=== PATIENT | female | born 1980 | race Caucasian/White ===

== ENCOUNTER → 2016-09-04 | Day surgery (SDC) | payer OTHER ==
[2016-08-27 09:06] VITALS: BMI 18.0
[~2016-09-04] VITALS: Ht 162.6 cm; Wt 49.0 kg
[~2016-09-04] MED LIST: CHOL20009 PO; CLC6 PO; DROS1TAB24 PO; IBUP1CAP9 PO; LEVO137T3 PO; LIDOCAINE HCL 2% 2 ML VIAL (20MG/ML) ONE; LIOT5TAB PO; MIDAZOLAM HCL 1 MG/ML 2ML VIAL ONE; OMEP20TA PO; ONDANSETRON INJ 2 MG/ML 2 ML VIAL ONE; PROPOFOL IV EMULSION 10 MG/ML 20 ML VIAL IV ONE; SODIUM CHLORIDE 0.9% 500ML 500 ML IV ONE; SPIR25TA PO; TRAM-453 PO
[2016-09-04 10:48] VITALS: Ht 162.6 cm; Wt 49.0 kg
[2016-09-04 10:49] VITALS: TEMP 36.8
--- NOTE | 2016-09-04 11:36 | Endo History and Physical ---
History & Physical Date of Service: Sep 04, 2016. Chief Complaint: INCREASED REFLUX AND DYSPHAGIA Referring Physician: JOSE FRANCISCO MCALLISTER History of Present Illness 36 yo CF who presents for EGD secondary to worsening GERD and dysphagia. Past Medical History Gastrointestinal Disorder, Reflux, Cancer, Heart Disease, Thyroid Disease Past Surgical History Hx Cardiac Surgery: Yes (CARDIAC CATHETERIZATION 2001) Hx Internal Defibrillator: No Hx Pacemaker: No Hx Abdominal Surgery: No Hx of Implantable Prosthesis: No Hx Post-Op Nausea and Vomiting: Yes Hx Cancer Surgery: Yes (THYROIDECTOMY 1998) Hx Thoracic Surgery: Yes (THYMUS REMOVAL 2000) Hx Orthopedic: Yes (L5-S1 FUSION 2014) Hx Urinary Tract Surgery: No Family History Colon CA, Polyp, IBD Social History Smoking Status: Never Smoker Hx Substance Use: No Hx Alcohol Use: Yes (SOCIAL) Allergies Coded Allergies: Morphine (Verified Adverse Reaction, Intermediate, RED VEINS, 09/04/16) Current Medications Reported Home Medications Medications Dose Route/Sig Max Daily Dose Days Date Category Dose Instructions Aldactone (Spironolactone) 25 Mg Tab 25 Mg PO QAM 08/27/16 Reported Cytomel (Liothyronine Sodium) 5 Mcg Tab 5 Mcg PO Q2D 11/18/15 Reported Levothyroxine Sodium 137 Mcg Tab 137 Mcg PO QAM 90 11/18/15 Reported Ibuprofen 200 Mg Cap 600 Mg PO TID PRN 07/15/14 Reported Radha (Drospirenone-Ethinyl Estradiol) 1 Tab Tab 1 Tab PO QAM 07/15/14 Reported Omeprazole 20 Mg Tab 20 Mg PO QAM 07/15/14 Reported Ultram (Tramadol Hcl) 50 Mg Tab 50-100 Mg PO Q4H PRN 05/29/13 Reported PRN PAIN Vitamin D (Cholecalciferol) 2,000 Unit Tab 2,000 Units PO QAM 05/29/13 Reported Colchicine * (Colchicine) 0.6 Mg Tab 0.6 Mg PO QAM 11/01/11 Reported Vital Signs Weight (Kilograms): 49.00 Height (Feet): 5 Height (Inches): 4 Date Time Temp Pulse Resp B/P Pulse Ox O2 Delivery O2 Flow Rate FiO2 09/04/16 10:49 36.8 94 18 143/59 98 Room Air Physical Exam General Appearance: WD/WN, no apparent distress Respiratory/Chest: Auscultation: breath sounds normal Cardiovascular: Heart Auscultation: RRR Abdomen: Bowel Sounds: normal Inspection & Palpation: soft, non-distended, no tenderness, guarding & rebound Assessment and Plan Assessment: 36 yo CF who presents for EGD secondary to worsening GERD and dysphagia. Plan: Proceed with EGD.
--- NOTE | 2016-09-04 12:02 | Discharge Instructions ---
Endoscopy Patient Instructions Date / Procedure(s) Performed Sep 04, 2016. Colonoscopy, EGD Allergy Information Coded Allergies: Morphine (Verified Adverse Reaction, Intermediate, RED VEINS, 09/04/16) Discharge Date / Findings Sep 04, 2016. Schatzki's ring s/p dilation Medication Instructions OK to resume all medications today as prescribed Reported Home Medications Medications Dose Route/Sig Max Daily Dose Days Date Category Dose Instructions Aldactone (Spironolactone) 25 Mg Tab 25 Mg PO QAM 08/27/16 Reported Cytomel (Liothyronine Sodium) 5 Mcg Tab 5 Mcg PO Q2D 11/18/15 Reported Levothyroxine Sodium 137 Mcg Tab 137 Mcg PO QAM 90 11/18/15 Reported Ibuprofen 200 Mg Cap 600 Mg PO TID PRN 07/15/14 Reported Radha (Drospirenone-Ethinyl Estradiol) 1 Tab Tab 1 Tab PO QAM 07/15/14 Reported Omeprazole 20 Mg Tab 20 Mg PO QAM 07/15/14 Reported Ultram (Tramadol Hcl) 50 Mg Tab 50-100 Mg PO Q4H PRN 05/29/13 Reported PRN PAIN Vitamin D (Cholecalciferol) 2,000 Unit Tab 2,000 Units PO QAM 05/29/13 Reported Colchicine * (Colchicine) 0.6 Mg Tab 0.6 Mg PO QAM 11/01/11 Reported Provider Instructions Activity Restrictions - No exercising or heavy lifting for 24 hours. - Do not drink alcohol the day of the procedure. - Do not drive a car or operate machinery until the day after the procedure. - Do not make any important decisions or sign important papers in 24 hours after the procedure. Following Day: - Return to full activity which may include returning to work/school. Diet Start your diet with liquids and light foods (jello, soup, juice, toast). Then eat your usual diet if not nauseated. Treatment For Common After Affects For mild abdominal pain, bloating, or excessive gas: - Rest - Eat lightly - Lie on right side Follow-Up Information Follow-up with JOSE FRANCISCO MCALLISTER as scheduled Anesthesia Information What You Should Know You have had a procedure that required some medicine to reduce anxiety and discomfort. This treatment is called moderate sedation. After receiving the treatment, you may be sleepy, but you will be able to breathe on your own. The effects of the treatment may last for several hours. Follow these instructions along with Activity/Diet recommendations noted above: * Do NOT do anything where dizziness or clumsiness would be dangerous. * Rest quietly at home today, then you can be up and about tomorrow. * Have a responsible person stay with you the rest of today. * You may have had an I.V. today. If so, you may take the dressing off later today. Recommendations Call your doctor if: * Trouble breathing * Continuous vomiting for more than 24 hours * Temperature above 101 degrees * Severe abdominal pain or bloating * Pain not relieved by pain medicine ordered * There is increased drainage or redness from any incision * A large amount of rectal bleeding greater than 2-3 tablespoons. (If you had a polyp/s removed or have hemorrhoids, a small amount of blood - from the rectum is to be expected.) * You have any unanswered questions or concerns. IN THE EVENT OF A SERIOUS EMERGENCY, GO TO THE NEAREST EMERGENCY ROOM Your discharge instructions were prepared by provider Kali Clemente. Patient Instructions Signature Page Alma Rosa Messina Patient (or Guardian) Signature/Date: I have read and understand the instructions given to me by my caregivers. Caregiver/RN/Doctor Signature/Date: The above-named patient and/or guardian has received patient instructions on this date. + Original Patient Signature Page (only) stays with chart. Please make copy for patient.
--- NOTE | 2016-09-04 12:02 | GI REPORT ---
Procedure Date: 09/04/2016 11:27 AM Procedure: Upper GI endoscopy Indications: Dysphagia, Gastro-esophageal reflux disease Medicines: Monitored Anesthesia Care Complications: No immediate complications. Estimated Blood Loss: Estimated blood loss: none. Procedure: Pre-Anesthesia Assessment: - Prior to the procedure, a History and Physical was performed, and patient medications and allergies were reviewed. The patient's tolerance of previous anesthesia was also reviewed. The risks and benefits of the procedure and the sedation options and risks were discussed with the patient. All questions were answered, and informed consent was obtained. Prior Anticoagulants: The patient has taken no previous anticoagulant or antiplatelet agents. ASA Grade Assessment: II - A patient with mild systemic disease. After reviewing the risks and benefits, the patient was deemed in satisfactory condition to undergo the procedure. After obtaining informed consent, the endoscope was passed under direct vision. Throughout the procedure, the patient's blood pressure, pulse, and oxygen saturations were monitored continuously. The scope was introduced through the mouth, and advanced to the second part of duodenum. The upper GI endoscopy was accomplished without difficulty. The patient tolerated the procedure well. Findings: A mild Schatzki ring (acquired) was found at the gastroesophageal junction. A TTS dilator was passed through the scope. Dilation with a 15-16.5-18 mm balloon (to a maximum balloon size of 18 mm) and an 18-19-20 mm balloon (to a maximum balloon size of 20 mm) dilator was performed. The dilation site was examined and showed mild improvement in luminal narrowing. Multiple sessile polyps with no bleeding and no stigmata of recent bleeding were found in the gastric fundus. The examined duodenum was normal. Impression: - Mild Schatzki ring. Dilated. - Multiple gastric polyps. - Normal examined duodenum. - No specimens collected. Recommendation: - Resume previous diet. - Continue present medications. - Repeat the upper endoscopy PRN for retreatment. - Return to GI clinic as previously scheduled. Kali Clemente, DO 09/04/2016 12:01:32 PM This report has been signed electronically. Note Initiated On: 09/04/2016 11:27 AM I attest to the content of the Intraoperative Record and orders documented therein, exceptions below
[2016-09-04 12:35] VITALS: BP 102/60; PULSE 61; O2SAT 99
--- NOTE | 2016-09-04 12:36 | Anesthesiology Progress Note ---
Anesthesia Post Op Note Date & Time Sep 04, 2016 at 12:36 Vital Signs Pain Intensity: 0 Vital Signs Past 12 Hours Date Time Temp Pulse Resp B/P Pulse Ox O2 Delivery O2 Flow Rate FiO2 09/04/16 12:05 82 18 118/81 100 Room Air 09/04/16 10:49 36.8 94 18 143/59 98 Room Air Notes Mental Status: alert / awake / arousable, participated in evaluation Pt Amnestic to Procedure: Yes Nausea / Vomiting: adequately controlled Pain: adequately controlled Airway Patency, RR, SpO2: stable & adequate BP & HR: stable & adequate Hydration State: stable & adequate Anesthetic Complications: no major complications apparent
== END | disposition home or self-care (01) ==
LOC: C.GI 10:29
PROVIDERS: ATTEND Internal Medicine
DX: K22.2 Esophageal obstruction (principal); K21.9 Gastro-esophageal reflux disease without esophagitis; K31.7 Polyp of stomach and duodenum; I51.9 Heart disease, unspecified; E07.9 Disorder of thyroid, unspecified; Z98.1 Arthrodesis status; Z98.890 Other specified postprocedural states; Z80.0 Family history of malignant neoplasm of digestive organs; Z88.5 Allergy status to narcotic agent; Z83.79 Family history of other diseases of the digestive system

== ENCOUNTER → 2016-11-05 | Outpatient (CLI) | payer OTHER ==
[~2016-11-05] MED LIST changes: -LIDOCAINE HCL 2% 2 ML VIAL (20MG/ML) ONE; -MIDAZOLAM HCL 1 MG/ML 2ML VIAL ONE; -ONDANSETRON INJ 2 MG/ML 2 ML VIAL ONE; -PROPOFOL IV EMULSION 10 MG/ML 20 ML VIAL IV ONE; -SODIUM CHLORIDE 0.9% 500ML 500 ML IV ONE
[2016-11-05 18:01] LABS: THYROID STIMULATING HORMONE 0.556 uIu/ml (0.300-4.500)
== END | disposition home or self-care (01) ==
LOC: C.LABBC 13:27
PROVIDERS: ATTEND Nurse Practitioner Family
DX: E89.0 Postprocedural hypothyroidism (principal)

== ENCOUNTER → 2016-11-22 | Outpatient (CLI) | payer OTHER ==
--- NOTE | 2016-11-22 08:25 | DIAGNOSTIC IMAGING REPORT ---
THYROID ULTRASOUND CLINICAL HISTORY: Postablative hypothyroidism. COMPARISON STUDY: PET/CT April 28, 2012. TECHNIQUE: Sonography of the thyroid gland was performed. FINDINGS: No residual thyroid tissue is identified. No lymphadenopathy or other abnormalities are identified within the neck following thyroidectomy. IMPRESSION: Expected findings following thyroidectomy. No sonographic evidence for recurrent malignancy within the thyroidectomy bed. Electronically signed by: Mario Nicholson M.D. 11/22/2016 8:24 AM Dictated Date/Time: 11/22/2016 8:22 AM
== END | disposition home or self-care (01) ==
LOC: C.ULTR 07:04
PROVIDERS: ATTEND Nurse Practitioner Family
DX: E89.0 Postprocedural hypothyroidism (principal)

== ENCOUNTER → 2017-05-03 | Outpatient (CLI) | payer OTHER ==
[2017-05-03 18:09] LABS: BASO % 0.4 %; BASO ABS # 0.03 K/uL (0-0.2); COMPLETE YES; EOS % 3.8 %; HEMATOCRIT 40.4 % (37-47); IG% 0.1 %; LYMPH % 28.1 %; MEAN CELL VOLUME 91.8 fL (80-100); MEAN CORPUSCULAR HEMOGLOBIN 30.7 pg (25-34); MEAN CORPUSCULAR HGB CONC 33.4 g/dl (32-36); MEAN PLATELET VOLUME 12.3 fL (7.4-10.4); MONO % 5.9 %; NEUT % 61.7 %; PLATELET COUNT 199 K/uL (130-400); WHITE BLOOD COUNT 8.19 K/uL (4.8-10.8)
[2017-05-03 18:31] LABS: ALT/SGPT 18 U/L (12-78); BLOOD UREA NITROGEN 16 mg/dl (7-18); BUN/CREATININE RATIO 20.6 (10-20); CALCIUM 8.8 mg/dl (8.5-10.1); CARBON DIOXIDE 28 mmol/L (21-32); CHLORIDE 107 mmol/L (98-107); CREATININE 0.79 mg/dl (0.60-1.20); GLUCOSE 82 mg/dl (70-99); MAGNESIUM 2.3 mg/dl (1.8-2.4); POTASSIUM 3.8 mmol/L (3.5-5.1); SODIUM 141 mmol/L (136-145)
[2017-05-03 18:39] LABS: ALB/GLOB RATIO 1.2 (0.9-2); ALKALINE PHOSPHATASE 49 U/L (45-117); AST/SGOT 14 U/L (15-37); FERRITIN 12.1 ng/ml (8.0-388.0)
== END | disposition home or self-care (01) ==
LOC: C.LAB 17:07
PROVIDERS: ATTEND Nurse Practitioner Family
DX: M79.669 Pain in unspecified lower leg (principal); M79.89 Other specified soft tissue disorders

== ENCOUNTER → 2017-05-09 | Outpatient (CLI) | payer OTHER ==
[2017-05-12 18:32] LABS: MICROSOMAL AB 1 IU/ML (<9); THYROGLOBULIN 0.2 NG/ML (2.8-40.9); TSI <89 % baseline (<140)
== END | disposition home or self-care (01) ==
LOC: C.LAB 08:19
PROVIDERS: ATTEND Nurse Practitioner Family
DX: E89.0 Postprocedural hypothyroidism (principal)

== ENCOUNTER → 2017-08-28 | Outpatient (CLI) | payer OTHER ==
[2017-08-28 17:44] LABS: BASO % 0.3 %; BASO ABS # 0.02 K/uL (0-0.2); EOS % 2.7 %; HEMATOCRIT 39.5 % (37-47); HEMOGLOBIN 13.2 g/dL (12.0-16.0); IG# 0.01 K/uL (0.00-0.02); LYMPH ABS # 1.77 K/uL (1.2-3.4); MEAN CELL VOLUME 91.2 fL (80-100); MEAN CORPUSCULAR HEMOGLOBIN 30.5 pg (25-34); MEAN CORPUSCULAR HGB CONC 33.4 g/dl (32-36); MONO % 6.6 %; MONO ABS # 0.49 K/uL (0.11-0.59); NEUT % 66.3 %; NEUT ABS # 4.88 K/uL (1.4-6.5); PLATELET COUNT 212 K/uL (130-400); RED CELL DISTRIBUTION WIDTH CV 12.6 % (11.5-14.5); RED CELL DISTRIBUTION WIDTH SD 41.9 fL (36.4-46.3); WHITE BLOOD COUNT 7.37 K/uL (4.8-10.8)
[2017-08-28 18:20] LABS: T3 FREE 3.47 pg/ml (2.30-4.20)
[2017-09-05 20:33] LABS: ACETYLCHOLINE RECEPT BLOCKING <15 % inhibit (<15); ALDOLASE** TC 66985R 4 U/L (0.0-8.1); ANA SCREEN TC 249X NEGATIVE (NEGATIVE); ANTI-SS-A <1.0 NEG AI (<1.0 NEG); ANTI-SS-B <1.0 NEG AI (<1.0 NEG); ANTICARDIOLIPID AB IGA <11 APL (< = 11); COMPLEMENT C3 TC 44859W 116 MG/DL (90-180); COMPLEMENT C4 TC 44982E 23 MG/DL (16-47); MICROSOMAL AB 1 IU/ML (<9)
== END | disposition home or self-care (01) ==
LOC: C.LAB 17:10
PROVIDERS: ATTEND Nurse Practitioner Family
DX: E89.0 Postprocedural hypothyroidism (principal); R13.10 Dysphagia, unspecified; R29.898 Other symptoms and signs involving the musculoskeletal system; R51 Headache; R42 Dizziness and giddiness; M54.17 Radiculopathy, lumbosacral region; H53.2 Diplopia

== ENCOUNTER 2017-09-30 12:00 | Observation (INO) | payer OTHER ==
[~2017-09-30] VITALS: Ht 162.6 cm; Wt 51.9 kg
[2017-09-30 12:56] LABS: BASO % 0.3 %; BASO ABS # 0.03 K/uL (0-0.2); EOS ABS # 0.11 K/uL (0-0.5); HEMATOCRIT 43.4 % (37-47); HEMOGLOBIN 14.9 g/dL (12.0-16.0); IG# 0.04 K/uL (0.00-0.02); LYMPH % 24.6 %; LYMPH ABS # 2.69 K/uL (1.2-3.4); MEAN CELL VOLUME 88.4 fL (80-100); MEAN CORPUSCULAR HEMOGLOBIN 30.3 pg (25-34); MEAN CORPUSCULAR HGB CONC 34.3 g/dl (32-36); MEAN PLATELET VOLUME 12.6 fL (7.4-10.4); MONO % 5.6 %; MONO ABS # 0.61 K/uL (0.11-0.59); NEUT % 68.1 %; NEUT ABS # 7.46 K/uL (1.4-6.5); PLATELET COUNT 237 K/uL (130-400); RED CELL DISTRIBUTION WIDTH SD 42.1 fL (36.4-46.3); WHITE BLOOD COUNT 10.94 K/uL (4.8-10.8)
[2017-09-30 13:05] LABS: ALBUMIN 4.3 gm/dl (3.4-5.0); ALT/SGPT 20 U/L (12-78); BLOOD UREA NITROGEN 16 mg/dl (7-18); CALCIUM 9.5 mg/dl (8.5-10.1); CARBON DIOXIDE 21 mmol/L (21-32); CREATININE 0.93 mg/dl (0.60-1.20); GLUCOSE 105 mg/dl (70-99); POTASSIUM 3.3 mmol/L (3.5-5.1); SODIUM 137 mmol/L (136-145)
[2017-09-30 13:13] LABS: INR 0.9 (0.9-1.1); PTT PATIENT 23.8 SECONDS (21.0-31.0)
[2017-09-30 13:14] LABS: ALKALINE PHOSPHATASE 41 U/L (45-117); AST/SGOT 15 U/L (15-37); CKMB 0.7 ng/ml (0.5-3.6); TOTAL PROTEIN 8.1 gm/dl (6.4-8.2)
--- NOTE | 2017-09-30 13:39 | DIAGNOSTIC IMAGING REPORT ---
SINGLE VIEW CHEST CLINICAL HISTORY: Atypical chest pain. FINDINGS: An AP, portable, upright chest radiograph is compared to study dated 11/18/2015. The examination is degraded by portable technique and patient rotation. The patient is status post midline sternotomy. The cardiomediastinal silhouette is unremarkable. The lungs and pleural spaces are clear. No pneumothorax is seen. The bony thorax is grossly intact. Surgical clips are seen in the lower neck. IMPRESSION: No acute cardiopulmonary abnormality. Electronically signed by: Tristan Govea M.D. 09/30/2017 1:37 PM Dictated Date/Time: 09/30/2017 1:37 PM
[2017-09-30 13:44] LABS: INFLUENZA B ANTIGEN Neg for Influ B (NEG)
[2017-09-30] MEDS ORDERED: PRLSR20 PO (13:48)
[2017-09-30] MEDS ORDERED: CYAN10005 PO (13:50)
--- NOTE | 2017-09-30 15:01 | History and Physical ---
History & Physical Date & Time of Service: Sep 30, 2017 at 15:01 Chief Complaint: Sob, Tachycardia, [facility] Ref. Primary Care Physician: Helio Aguilar III, CRNP History of Present Illness Source: patient Patient reports feeling SOB upon exertion since . She states that earlier in the week, she had a viral infection that subsided. But then began to get exertional SOB when walking short distances, this was accompanied by orthopnea. Patient reports that she was unable to lie flat. And this has continued over the weekend. Patient denies any fever, chills, nausea, vomiting, chest pain. She states that she has had pericarditis in the past. She has tired to take NSAID, colchicine with no avail. As she did not improve, she was sent to the ER by [facility] Past Medical/Surgical History GERD H/O THYROID CANCER SOMATIC DYSFUNCTION LOWER BACK PAIN Family History FH: lung disease FHx: cancer Social History Smoking Status: Never Smoker Alcohol Use: none Drug Use: none Marital Status: single Housing status: lives with family Occupational Status: employed Immunizations History of Influenza Vaccine: Unknown History of Tetanus Vaccine?: Unknown History of Pneumococcal: Unknown History of Hepatitis B Vaccine: Unknown Allergies Coded Allergies: Morphine (Verified Adverse Reaction, Intermediate, RED VEINS, 09/30/17) Home Medications Scheduled Cholecalciferol (Vitamin D), 2,000 UNITS PO QAM Colchicine (Colchicine *), 0.6 MG PO QAM Cyanocobalamin (Vitamin B-12), 1,000 MCG PO QAM Drospirenone-Ethinyl Estradiol (Radha), 1 TAB PO QAM Levothyroxine Sodium (Levothyroxine Sodium), 137 MCG PO QAM Liothyronine Sodium (Cytomel), 5 MCG PO Q2D Omeprazole (Prilosec), 40 MG PO QAM Spironolactone (Aldactone), 25 MG PO QAM Scheduled PRN Ibuprofen (Ibuprofen), 600 MG PO TID PRN for PRN Tramadol Hcl (Ultram), 50-100 MG PO Q4H PRN for PRN Review of Systems Constitutional: No fever Eyes: No worsening of vision ENT: No hearing loss Respiratory: No cough Cardiovascular: + orthopnea, No chest pain, No PND, No edema Abdomen: No pain, No nausea Musculoskeletal: No joint pain Neurologic: No memory loss Psychiatric: No depression symptoms Endocrine: No fatigue Hematologic / Lymphatic: No abnormal bleeding/bruising Integumentary: No itch Allergic / Immunologic: No environmental allergies Physical Exam Vital Signs Date Time Temp Pulse Resp B/P (MAP) Pulse Ox O2 Delivery O2 Flow Rate FiO2 09/30/17 14:15 73 32 09/30/17 14:03 123/69 09/30/17 14:00 72 26 09/30/17 13:45 75 24 09/30/17 13:33 113/81 09/30/17 13:30 75 40 09/30/17 13:15 77 33 09/30/17 13:03 107/75 09/30/17 13:00 81 23 09/30/17 12:45 87 20 09/30/17 12:33 120/83 09/30/17 12:30 105 24 09/30/17 12:28 98 Room Air 09/30/17 12:27 96 Room Air 09/30/17 12:09 36.8 118 20 154/91 94 General Appearance: WD/WN, no apparent distress Head: normocephalic Eyes: normal inspection ENT: normal ENT inspection Neck: supple, no adenopathy Respiratory/Chest: chest non-tender, lungs clear, normal breath sounds Cardiovascular: regular rate, rhythm, no edema Abdomen/GI: normal bowel sounds, non tender, soft Back: normal inspection Extremities/Musculoskelatal: normal inspection Neurologic/Psych: alert, oriented x 3 Skin: normal color Lymphatic: no adenopathy Diagnostics Laboratory Results Results Past 24 Hours Test 09/30/17 12:20 09/30/17 12:37 09/30/17 12:58 Range/Units White Blood Count 10.94 4.8-10.8 K/uL Red Blood Count 4.91 4.2-5.4 M/uL Hemoglobin 14.9 12.0-16.0 g/dL Hematocrit 43.4 37-47 % Mean Corpuscular Volume 88.4 80-100 fL Mean Corpuscular Hemoglobin 30.3 25-34 pg Mean Corpuscular Hemoglobin Concent 34.3 32-36 g/dl Platelet Count 237 130-400 K/uL Mean Platelet Volume 12.6 7.4-10.4 fL Neutrophils (%) (Auto) 68.1 % Lymphocytes (%) (Auto) 24.6 % Monocytes (%) (Auto) 5.6 % Eosinophils (%) (Auto) 1.0 % Basophils (%) (Auto) 0.3 % Neutrophils # (Auto) 7.46 1.4-6.5 K/uL Lymphocytes # (Auto) 2.69 1.2-3.4 K/uL Monocytes # (Auto) 0.61 0.11-0.59 K/uL Eosinophils # (Auto) 0.11 0-0.5 K/uL Basophils # (Auto) 0.03 0-0.2 K/uL RDW Standard Deviation 42.1 36.4-46.3 fL RDW Coefficient of Variation 13.0 11.5-14.5 % Immature Granulocyte % (Auto) 0.4 % Immature Granulocyte # (Auto) 0.04 0.00-0.02 K/uL Erythrocyte Sedimentation Rate 6 0-21 mm/hr Prothrombin Time 9.7 9.0-12.0 SECONDS Prothromb Time International Ratio 0.9 0.9-1.1 Activated Partial Thromboplast Time 23.8 21.0-31.0 SECONDS Partial Thromboplastin Ratio 0.9 D-Dimer 320 0-500 ug/L FEU Sodium Level 137 136-145 mmol/L Potassium Level 3.3 3.5-5.1 mmol/L Chloride Level 104 98-107 mmol/L Carbon Dioxide Level 21 21-32 mmol/L Anion Gap 12.0 3-11 mmol/L Blood Urea Nitrogen 16 7-18 mg/dl Creatinine 0.93 0.60-1.20 mg/dl Est Creatinine Clear Calc Drug Dose 68.6 ml/min Estimated GFR () 91.6 Estimated GFR (Non- 79.1 BUN/Creatinine Ratio 17.7 10-20 Random Glucose 105 70-99 mg/dl Calcium Level 9.5 8.5-10.1 mg/dl Magnesium Level 2.1 1.8-2.4 mg/dl Total Bilirubin 0.4 0.2-1 mg/dl Aspartate Amino Transf (AST/SGOT) 15 15-37 U/L Alanine Aminotransferase (ALT/SGPT) 20 12-78 U/L Alkaline Phosphatase 41 45-117 U/L Total Creatine Kinase 70 26-192 U/L Creatine Kinase MB 0.7 0.5-3.6 ng/ml Creatine Kinase MB Ratio 1.0 0-3.0 Troponin I < 0.015 0-0.045 ng/ml C-Reactive Protein 0.29 0-0.29 mg/dl Pro-B-Type Natriuretic Peptide 37 0-450 pg/ml Total Protein 8.1 6.4-8.2 gm/dl Albumin 4.3 3.4-5.0 gm/dl Globulin 3.8 2.5-4.0 gm/dl Albumin/Globulin Ratio 1.1 0.9-2 Thyroid Stimulating Hormone (TSH) 0.236 0.300-4.500 uIu/ml Free Thyroxine 1.74 0.80-1.60 ng/dl Lyme Disease IgG Antibody NEG NEG Lyme Disease IgM Antibody NEG NEG Influenza Type A Antigen Neg for Influ A NEG Influenza Type B Antigen Neg for Influ B NEG Impression Assessment and Plan SOB upon exertion with orthopnea in a 37 yo female with h/o pericarditis Diff dx: myocarditis, CHF Unsure of cause of her diagnosis given lack of pain. Will admit under OBS to tele. Will obtain Echo. Will consult cardiology Await recommendation Troponin was negative. continue colchicine and ibuprofen H/O thyroid cancer on replacement therapy to supress TSH Low back pain secondary to spinal stenosis and degenerative disease, status post spinal fusion and laminectomy: Patient is continue current medical regimen. GERD: will monitor and continue home meds Hypokalemia will repeat BMP in am Advanced Directives Existing Advance Directive: No Existing Living Will: No Existing Power of Detective Supervisor: No Existing Health Care Proxy: No Resuscitation Status VTE Prophylaxis Will order VTE Prophylaxis: Yes
--- NOTE | 2017-09-30 15:26 | EMERGENCY ROOM VISIT NOTE ---
History First contact with patient: 12:25 Chief Complaint: TACHYCARDIA Stated Complaint: SOB, TACHYCARDIA, RE[employer]UITMENT [employer]IST REF. Nursing Triage Summary: c/o increased sob and tachycardia since and hx of pericarditis and called Radha and he told her to come in some chest pressure had to sleep with several pillows up last night History of Present Illness The patient is a 37 year old female who presents to the Emergency Room with complaints of "shortness of breath, tachycardia, concrete puddler referred". The patient states that this past she began with left anterior chest pain and dyspnea. She states that it is been worsening. She has a history of pericarditis. She notes that today while walking to work her heart rate went to the 140s. She called her concrete puddler, Dr. Ndiaye was recommended to come be evaluated in the emergency department. She also notes that the chest pain or shortness of breath is certainly worse with exertion, and even later in the day becomes worse. She notes she has to sleep with multiple pillows underneath her back secondary to the shortness of breath. Elevation of the head of the bed while sleeping helps with her shortness of breath and chest pain. She notes that this feels different than her previous pericarditis. She is status post midline sternotomy in 2000. She also notes vision changes in the past of which she has seen her eye doctor and neurologist. There is question of possible Myasthenia gravis. Review of Systems A complete 10-point Review of Systems was discussed with the patient, with pertinent positives and negatives listed in the History of Present Illness. All remaining Review of Systems questions can be considered negative unless otherwise specified. Past Medical/Surgical History Medical Problems: (1) Abdominal pain (2) Dehydration (3) Dehydration, moderate (4) Diverticulitis (5) Diverticulitis (6) Lumbar radiculopathy (7) Thyroid cancer Family History FH: lung disease FHx: cancer Social History Smoking Status: Never Smoker Alcohol Use: occasionally Marital Status: single Occupation Status: employed Current/Historical Medications Scheduled Cholecalciferol (Vitamin D), 2,000 UNITS PO QAM Colchicine (Colchicine *), 0.6 MG PO QAM Cyanocobalamin (Vitamin B-12), 1,000 MCG PO QAM Drospirenone-Ethinyl Estradiol (Radha), 1 TAB PO QAM Levothyroxine Sodium (Levothyroxine Sodium), 137 MCG PO QAM Liothyronine Sodium (Cytomel), 5 MCG PO Q2D Omeprazole (Prilosec), 40 MG PO QAM Spironolactone (Aldactone), 25 MG PO QAM Scheduled PRN Ibuprofen (Ibuprofen), 600 MG PO TID PRN for PRN Tramadol Hcl (Ultram), 50-100 MG PO Q4H PRN for PRN Physical Exam Vital Signs Date Time Temp Pulse Resp B/P (MAP) Pulse Ox O2 Delivery O2 Flow Rate FiO2 09/30/17 14:15 73 32 09/30/17 14:03 123/69 09/30/17 14:00 72 26 09/30/17 13:45 75 24 09/30/17 13:33 113/81 09/30/17 13:30 75 40 09/30/17 13:15 77 33 09/30/17 13:03 107/75 09/30/17 13:00 81 23 09/30/17 12:45 87 20 09/30/17 12:33 120/83 09/30/17 12:30 105 24 09/30/17 12:28 98 Room Air 09/30/17 12:27 96 Room Air 09/30/17 12:09 36.8 118 20 154/91 94 Physical Exam VITAL SIGNS - Vital signs and nursing notes were reviewed. Stable. Tachycardic. GENERAL - 37-year-old female appearing her stated age who is in no acute distress. Communicates well with provider and answers questions appropriately. SKIN - Without rashes. No meningeal or petechial rashes. HEAD - NC/AT. EYES - Sclera anicteric. EARS - No deformities of external structures noted on gross examination bilaterally. NOSE - Midline and without cyanosis. No epistaxis or purulent drainage noted. MOUTH/OROPHARYNX - Without perioral cyanosis. LUNGS - Chest wall symmetric without accessory muscle use, intercostals retractions, or central cyanosis. Normal vesicular breath sounds CTA B/L. No wheezes, rales, or rhonchi appreciated. CARDIAC - RRR with S1/S2. No murmur, rubs, or gallops appreciated. MUSCULOSKELETAL: No tenderness to palpation of the substernal region. EXTREMITIES - +5/5 strength noted in UE/LE bilaterally. NEUROLOGIC - Cranial nerves II through XII grossly intact. PSYCH - A&O, and cooperates fully with examiner. Pt is very pleasant and interacts well with examiner. Medical Decision & Procedures ER Provider Diagnostic Interpretation: SINGLE VIEW CHEST CLINICAL HISTORY: Atypical chest pain. FINDINGS: An AP, portable, upright chest radiograph is compared to study dated 11/18/2015. The examination is degraded by portable technique and patient rotation. The patient is status post midline sternotomy. The cardiomediastinal silhouette is unremarkable. The lungs and pleural spaces are clear. No pneumothorax is seen. The bony thorax is grossly intact. Surgical clips are seen in the lower neck. IMPRESSION: No acute cardiopulmonary abnormality. Electronically signed by: Tristan Govea M.D. 09/30/2017 1:37 PM Dictated Date/Time: 09/30/2017 1:37 PM Laboratory Results 09/30/17 12:20 Red Blood Count 4.91, Mean Corpuscular Volume 88.4, Mean Corpuscular Hemoglobin 30.3, Mean Corpuscular Hemoglobin Concent 34.3, Mean Platelet Volume 12.6, Neutrophils (%) (Auto) 68.1, Lymphocytes (%) (Auto) 24.6, Monocytes (%) (Auto) 5.6, Eosinophils (%) (Auto) 1.0, Basophils (%) (Auto) 0.3, Neutrophils # (Auto) 7.46, Lymphocytes # (Auto) 2.69, Monocytes # (Auto) 0.61, Eosinophils # (Auto) 0.11, Basophils # (Auto) 0.03 09/30/17 12:20 Test 09/30/17 12:20 09/30/17 12:37 09/30/17 14:55 White Blood Count 10.94 K/uL (4.8-10.8) Red Blood Count 4.91 M/uL (4.2-5.4) Hemoglobin 14.9 g/dL (12.0-16.0) Hematocrit 43.4 % (37-47) Mean Corpuscular Volume 88.4 fL (80-100) Mean Corpuscular Hemoglobin 30.3 pg (25-34) Mean Corpuscular Hemoglobin Concent 34.3 g/dl (32-36) Platelet Count 237 K/uL (130-400) Mean Platelet Volume 12.6 fL (7.4-10.4) Neutrophils (%) (Auto) 68.1 % Lymphocytes (%) (Auto) 24.6 % Monocytes (%) (Auto) 5.6 % Eosinophils (%) (Auto) 1.0 % Basophils (%) (Auto) 0.3 % Neutrophils # (Auto) 7.46 K/uL (1.4-6.5) Lymphocytes # (Auto) 2.69 K/uL (1.2-3.4) Monocytes # (Auto) 0.61 K/uL (0.11-0.59) Eosinophils # (Auto) 0.11 K/uL (0-0.5) Basophils # (Auto) 0.03 K/uL (0-0.2) RDW Standard Deviation 42.1 fL (36.4-46.3) RDW Coefficient of Variation 13.0 % (11.5-14.5) Immature Granulocyte % (Auto) 0.4 % Immature Granulocyte # (Auto) 0.04 K/uL (0.00-0.02) Erythrocyte Sedimentation Rate 6 mm/hr (0-21) Prothrombin Time 9.7 SECONDS (9.0-12.0) Prothromb Time International Ratio 0.9 (0.9-1.1) Activated Partial Thromboplast Time 23.8 SECONDS (21.0-31.0) Partial Thromboplastin Ratio 0.9 D-Dimer 320 ug/L FEU (0-500) Anion Gap 12.0 mmol/L (3-11) Est Creatinine Clear Calc Drug Dose 68.6 ml/min Estimated GFR () 91.6 Estimated GFR (Non- 79.1 BUN/Creatinine Ratio 17.7 (10-20) Calcium Level 9.5 mg/dl (8.5-10.1) Magnesium Level 2.1 mg/dl (1.8-2.4) Total Bilirubin 0.4 mg/dl (0.2-1) Aspartate Amino Transf (AST/SGOT) 15 U/L (15-37) Alanine Aminotransferase (ALT/SGPT) 20 U/L (12-78) Alkaline Phosphatase 41 U/L (45-117) Total Creatine Kinase 70 U/L (26-192) Creatine Kinase MB 0.7 ng/ml (0.5-3.6) Creatine Kinase MB Ratio 1.0 (0-3.0) Troponin I < 0.015 ng/ml (0-0.045) C-Reactive Protein 0.29 mg/dl (0-0.29) Pro-B-Type Natriuretic Peptide 37 pg/ml (0-450) Total Protein 8.1 gm/dl (6.4-8.2) Albumin 4.3 gm/dl (3.4-5.0) Globulin 3.8 gm/dl (2.5-4.0) Albumin/Globulin Ratio 1.1 (0.9-2) Thyroid Stimulating Hormone (TSH) 0.236 uIu/ml (0.300-4.500) Free Thyroxine 1.74 ng/dl (0.80-1.60) Lyme Disease IgG Antibody NEG (NEG) Lyme Disease IgM Antibody NEG (NEG) Influenza Type A Antigen Neg for Influ A (NEG) Influenza Type B Antigen Neg for Influ B (NEG) Urine Color YELLOW Urine Appearance CLEAR (CLEAR) Urine pH 7.5 (4.5-7.5) Urine Specific [place] 1.011 (1.000-1.030) Urine Protein NEG (NEG) Urine Glucose (UA) NEG (NEG) Urine Ketones 2+ (NEG) Urine Occult Blood NEG (NEG) Urine Nitrite NEG (NEG) Urine Bilirubin NEG (NEG) Urine Urobilinogen NEG (NEG) Urine Leukocyte Esterase NEG (NEG) Urine Test NEG (NEG) Medical Decision Patient was seen and evaluated as above. Patient presents to us today referred by concrete puddler with dyspnea and tachycardia. There is also chest pain worse with exertion. History of pericarditis, status post midline sternotomy in 2000. After obtaining a thorough history and physical examination the above work up was performed. Chest x-ray negative for acute process. EKG reveals tachycardia, and per my interpretation there is no ectopy or ischemic change. CBC revealed slight leukocytosis at 10.94. No anemia. ESR normal at 6. D- dimer negative. Coags normal. Metabolic panel reveals slight decrease in potassium at 3.3. No evidence of kidney failure. No evidence of liver failure. CRP negative. BNP negative. TSH low at 0.236. Urine negative for acute process. Urine test negative. Lyme and influenza negative. I did discuss the case with the attending physician, and subsequently the on-call concrete puddler for [facility], and spoke with Dr. Galindo. We discussed the case. Patient will be admitted to medicine with cardiology consult and echo. I discussed the case with the hospitalist. Please refer to for the documentation regarding her stay. She declined pain medication. I do believe that given her exertional chest pain, exertional dyspnea, dyspnea increased with supine nature , and her underlying past medical history do recommend inpatient management. In the evaluation and treatment of this patient the following differential diagnoses were entertained: HI, PE, pericarditis, pleurisy, pneumonia, dissection, anxiety, GERD, among others. Impression Primary Impression: Chest pain Additional Impression: Hypokalemia Departure Information Dispostion Admitted as an inpatient Condition FAIR Referrals Helio Aguilar III, CRNP (PCP) Patient Instructions [facility] Problem Qualifiers
[2017-09-30] MEDS ORDERED: IV FLUIDS COMPLETED PRN (16:00)
[2017-09-30] MEDS ORDERED: IBUPROFEN 600 MG TAB PO PRN (16:30)
[2017-09-30] MEDS ORDERED: TRAMADOL HCL 50 MG TAB PO PRN (16:30)
[2017-09-30 18:12] VITALS: BP 136/77; PULSE 79; TEMP 37; Ht 162.6 cm; Wt 51.9 kg
[2017-09-30] MEDS ORDERED: PNEUMOCOCCAL ADMINISTRATION CHARGE ONE (18:45)
[2017-09-30] MEDS ORDERED: PNEUMOCOCCAL POLYSACCHARIDES 25 MCG/0.5 ML VIAL/SYR IM. ONE (18:45)
[2017-09-30 19:31] VITALS: BP 128/64; PULSE 70; TEMP 37; O2SAT 99
[2017-09-30 20:00] VITALS: O2SAT 95
[2017-10-01] VITALS (7 sets, daily range): BP systolic 104–136; BP diastolic 60–105; PULSE 74–109; TEMP 36.6–36.9; O2SAT 95–100
[2017-10-01] MEDS ORDERED: LEVOTHYROXINE 137 MCG TAB PO SCH (06:00)
[2017-10-01 06:35] LABS: HEMATOCRIT 40.2 % (37-47); HEMOGLOBIN 13.6 g/dL (12.0-16.0); MEAN CELL VOLUME 89.7 fL (80-100); MEAN CORPUSCULAR HEMOGLOBIN 30.4 pg (25-34); MEAN CORPUSCULAR HGB CONC 33.8 g/dl (32-36); MEAN PLATELET VOLUME 12.3 fL (7.4-10.4); PLATELET COUNT 205 K/uL (130-400); RED CELL DISTRIBUTION WIDTH CV 13.3 % (11.5-14.5); RED CELL DISTRIBUTION WIDTH SD 43.3 fL (36.4-46.3)
[2017-10-01 07:06] LABS: CALCIUM 8.5 mg/dl (8.5-10.1); CREATININE 0.88 mg/dl (0.60-1.20); POTASSIUM 4.1 mmol/L (3.5-5.1)
[2017-10-01] MEDS ORDERED: CHOLECALCIFEROL 1000 INTER.UNIT TAB PO SCH (09:00)
[2017-10-01] MEDS ORDERED: CYANOCOBALAMIN 500 MCG TAB (VIT B-12) PO SCH (09:00)
[2017-10-01] MEDS ORDERED: SPIRONOLACTONE 25 MG TAB PO SCH (09:00)
[2017-10-01] MEDS ORDERED: COLCHICINE 0.6 MG TAB PO SCH ×2 (09:00→21:00)
[2017-10-01] MEDS ORDERED: ENOXAPARIN 40 MG/0.4 ML SYR SQ SCH (09:00)
[2017-10-01] MEDS ORDERED: PANTOprazole SOD 40 MG TAB PO SCH (09:00)
--- NOTE | 2017-10-01 09:07 | ECHOCARDIOGRAM REPORT ---
*NOTICE TO RECEIVING DEMOCRAT AGENCY This information is strictly Confidential and protected under [place] law. [place] law prohibits you from making any further disclosure of this information unless further disclosure is expressly permitted by the written consent of the person to whom it pertains or is authorized by law. A general authorization for the release of medical or other information is not sufficient for this purpose. Hospital accepts no responsibility if the information is made available to any other person, INCLUDING THE PATIENT. Interpretation Summary * Name: EL PHILIP Study Date: 10/01/2017 06:31 AM BP: 104/60 mmHg * Patient Location: .2E\S\E209\S\1 HR: 74 * : 1980 (M/d/yyyy) Gender: Female Height: 64 in * Age: 37 yrs Ethnicity: CA Weight: 114 lb * Ordering Physician: Thierry Matamoros * Referring Physician: Conner Garcia * Performed By: Tesha Conway RDCS * * Reason For Study: SOB WITH EXERTION * BSA: 1.5 m2 * This was essentially a normal study. * Normal bi-ventricular function * -- Conclusions -- * There is no pericardial effusion. * The pericardium appears normal. * This was essentially a normal study. * Normal bi-ventricular function * No significant valvular pathology. Procedure Details * A complete two-dimensional transthoracic echocardiogram was performed (2D, M-mode, Doppler and color flow Doppler). Left Ventricle * The left ventricle is normal in size. * There is normal left ventricular wall thickness. * Ejection Fraction = 65-70%. * Left ventricular systolic function is normal. * The left ventricular wall motion is normal. Right Ventricle * The right ventricle is normal size. * The right ventricular systolic function is normal. Atria * The left atrial size is normal. * Right atrial size is normal. * No ASD detected; PFO is not assessed. Mitral Valve * The mitral valve anatomy is normal. * Significant mitral regurgitation is absent. Tricuspid Valve * The tricuspid valve anatomy is normal. * Significant tricuspid regurgitation is absent. Aortic Valve * The aortic valve is normal in structure and function. Pulmonic Valve * The pulmonic valve is not well seen, but is grossly normal. * There is no pulmonic valvular regurgitation. Great Vessels * The aortic root and proximal ascending aorta are normal sized. Pericardium/Pleural * There is no pericardial effusion. * The pericardium appears normal. MMode 2D Measurements and Calculations IVSd 0.71 cm IVSs 1.2 cm LVIDd 3.8 cm LVIDs 2.3 cm LVPWd 0.91 cm LVPWs 0.85 cm IVS/LVPW 0.77 FS 38.7 % EDV(Teich) 62.3 ml ESV(Teich) 18.8 ml EF(Teich) 69.8 % EDV(cubed) 55.3 ml ESV(cubed) 12.7 ml EF(cubed) 77.0 % % IVS thick 69.1 % % LVPW thick -7.25 % LV mass(C)d 87.8 grams LV mass(C)dI 57.0 grams/m\S\2 LV mass(C)s 59.7 grams LV mass(C)sI 38.8 grams/m\S\2 SV(Teich) 43.5 ml SI(Teich) 28.3 ml/m\S\2 SV(cubed) 42.6 ml SI(cubed) 27.6 ml/m\S\2 Ao root diam 3.1 cm Ao root area 7.7 cm\S\2 LA dimension 2.1 cm LA/Ao 0.67 LVAd ap4 22.5 cm\S\2 LVLd ap4 8.2 cm EDV(MOD-sp4) 52.1 ml EDV(sp4-el) 52.1 ml LVAs ap4 11.3 cm\S\2 LVLs ap4 6.8 cm ESV(MOD-sp4) 17.1 ml ESV(sp4-el) 16.0 ml EF(MOD-sp4) 67.3 % EF(sp4-el) 69.3 % LVAd ap2 22.0 cm\S\2 LVLd ap2 8.2 cm EDV(MOD-sp2) 47.7 ml EDV(sp2-el) 50.1 ml LVAs ap2 11.1 cm\S\2 LVLs ap2 7.1 cm ESV(MOD-sp2) 14.4 ml ESV(sp2-el) 14.6 ml EF(MOD-sp2) 69.7 % EF(sp2-el) 70.9 % LVLd %diff -0.30 % EDV(MOD-bp) 49.9 ml LVLs %diff 4.9 % ESV(MOD-bp) 15.9 ml EF(MOD-bp) 68.1 % SV(MOD-sp4) 35.1 ml SI(MOD-sp4) 22.8 ml/m\S\2 SV(MOD-sp2) 33.2 ml SI(MOD-sp2) 21.6 ml/m\S\2 SV(MOD-bp) 34.0 ml SI(MOD-bp) 22.1 ml/m\S\2 SV(sp4-el) 36.1 ml SI(sp4-el) 23.4 ml/m\S\2 SV(sp2-el) 35.5 ml SI(sp2-el) 23.1 ml/m\S\2 Doppler Measurements and Calculations MV E max lili 94.4 cm/sec MV A max lili 70.1 cm/sec MV E/A 1.3 MV dec time 0.26 sec Ao V2 max 111.7 cm/sec Ao max PG 5.0 mmHg Ao max PG (full) 1.0 mmHg LV V1 max PG 4.0 mmHg LV V1 max 99.8 cm/sec
[2017-10-01] MEDS ORDERED: OPTIRAY 320 IV PRN (09:30)
--- NOTE | 2017-10-01 09:40 | Cardiology Consultation ---
Cardiology Consultation Date of Service Oct 01, 2017. Cardiology Consultation Indication: Consultation for chest pain, shortness of breath and dyspnea History: This is a 37-year-old female who in 2010 had surgery for thyroid cancer at [facility]. She had resection of the thyroid as well as thymus. According to the patient, after that surgery she developed pericarditis with pericardial effusion was treated with colchicine. She was started on thyroid hormone replacement. There is not been a recurrence of her cancer following that surgery. She has carried however, the diagnosis of chronic pericarditis ever since the above events. She has been followed by Dr. Garcia through our office as well as by rheumatology. According to the rheumatology notes, she has never had elevation in any of her inflammatory markers and her rheumatologic workup has been consistently negative. According to Dr. Garcia's note, she's had a chronic history of atypical chest pain and heart palpitations which has been treated with intermittent colchicine. The patient presented to the emergency department last night complaining of dyspnea with activity, orthopnea and tachycardia with activity. Thus far her workup has been negative. Her Lyme's titer and influenza titers are negative. Her sedimentation rate was low. She had an echocardiogram which is essentially normal. She states her symptoms started last week perhaps with a viral prodrome. She denies fevers or chills. Allergies: Morphine Past medical history: As outlined in history of chief complaint patient has had thyroid cancer with resection of both the thyroid and thymus. She's had chronic heart palpitations and atypical chest pain. She is also had chronic low back pain. 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 She has never smoked. Family medical history: The patient's mother is positive for cardiolipin antibodies. General: The patient denies weight change, night sweats, fever, chills. Head: The patient denies headache and prior head trauma. Cardiovascular: The patient denies chest pain or chest discomfort, dyspnea on exertion, palpitations, PND, orthopnea, edema, spontaneous shortness of breath, syncope and near syncope. Pulmonary: The patient denies cough, wheeze, pleurisy, hemoptysis, sputum, and excessive snoring. Gastrointestinal: The patient denies nausea, vomiting, diarrhea, constipation, bloating, hematemesis, hematochezia, and abdominal pain. Skin: The patient denies diaphoresis and rash. Musculoskeletal: The patient denies joint pain, joint swelling, myalgia, back pain, neck pain and prior injuries. Neurological: The patient denies prior stroke and seizures Vital Signs Past 12 Hours Date Time Temp Pulse Resp B/P (MAP) Pulse Ox O2 Delivery O2 Flow Rate FiO2 10/01/17 08:00 Room Air 10/01/17 07:35 36.8 82 18 119/67 (84) 100 Room Air 10/01/17 04:00 95 Room Air 10/01/17 03:54 36.9 74 18 104/60 (75) 99 10/01/17 00:13 36.6 81 16 127/63 (84) 96 Room Air 10/01/17 00:00 95 Room Air General Appearance: Alert and Oriented x3. NAD. Head: Normocephalic Atraumatic. Eyes: PERRLA, EOMI, conjunctiva and sclera clear Neck: Supple. No carotid bruits noted. No JVD. No HJD. Respiratory: Breath sounds clear to auscultation bilaterally. No w/r/r. Cardiovascular: Reg rate and rhythm. S1 and S2 noted. No murmurs, rubs, gallops. PMI non displace. Abdomen: Normal bowel sounds, soft nontender. no abdominal bruits. Extremities: No edema, no clubbing or cyanosis. distal pulses 2/4 bilaterally. Neuro: No focal deficits. Psychiatric: Normal affect. Last 24 Hours Test 09/30/17 12:20 09/30/17 12:37 09/30/17 14:55 10/01/17 05:59 White Blood Count 10.94 K/uL 6.70 K/uL Red Blood Count 4.91 M/uL 4.48 M/uL Hemoglobin 14.9 g/dL 13.6 g/dL Hematocrit 43.4 % 40.2 % Mean Corpuscular Volume 88.4 fL 89.7 fL Mean Corpuscular Hemoglobin 30.3 pg 30.4 pg Mean Corpuscular Hemoglobin Concent 34.3 g/dl 33.8 g/dl Platelet Count 237 K/uL 205 K/uL Mean Platelet Volume 12.6 fL 12.3 fL Neutrophils (%) (Auto) 68.1 % Lymphocytes (%) (Auto) 24.6 % Monocytes (%) (Auto) 5.6 % Eosinophils (%) (Auto) 1.0 % Basophils (%) (Auto) 0.3 % Neutrophils # (Auto) 7.46 K/uL Lymphocytes # (Auto) 2.69 K/uL Monocytes # (Auto) 0.61 K/uL Eosinophils # (Auto) 0.11 K/uL Basophils # (Auto) 0.03 K/uL RDW Standard Deviation 42.1 fL 43.3 fL RDW Coefficient of Variation 13.0 % 13.3 % Immature Granulocyte % (Auto) 0.4 % Immature Granulocyte # (Auto) 0.04 K/uL Erythrocyte Sedimentation Rate 6 mm/hr Prothrombin Time 9.7 SECONDS Prothromb Time International Ratio 0.9 Activated Partial Thromboplast Time 23.8 SECONDS Partial Thromboplastin Ratio 0.9 D-Dimer 320 ug/L FEU Sodium Level 137 mmol/L 138 mmol/L Potassium Level 3.3 mmol/L 4.1 mmol/L Chloride Level 104 mmol/L 106 mmol/L Carbon Dioxide Level 21 mmol/L 24 mmol/L Anion Gap 12.0 mmol/L 8.0 mmol/L Blood Urea Nitrogen 16 mg/dl 16 mg/dl Creatinine 0.93 mg/dl 0.88 mg/dl Est Creatinine Clear Calc Drug Dose 68.6 ml/min 72.4 ml/min Estimated GFR () 91.6 98.0 Estimated GFR (Non- 79.1 84.5 BUN/Creatinine Ratio 17.7 18.5 Random Glucose 105 mg/dl 90 mg/dl Calcium Level 9.5 mg/dl 8.5 mg/dl Magnesium Level 2.1 mg/dl Total Bilirubin 0.4 mg/dl Aspartate Amino Transf (AST/SGOT) 15 U/L Alanine Aminotransferase (ALT/SGPT) 20 U/L Alkaline Phosphatase 41 U/L Total Creatine Kinase 70 U/L Creatine Kinase MB 0.7 ng/ml Creatine Kinase MB Ratio 1.0 Troponin I < 0.015 ng/ml C-Reactive Protein 0.29 mg/dl Pro-B-Type Natriuretic Peptide 37 pg/ml Total Protein 8.1 gm/dl Albumin 4.3 gm/dl Globulin 3.8 gm/dl Albumin/Globulin Ratio 1.1 Thyroid Stimulating Hormone (TSH) 0.236 uIu/ml Free Thyroxine 1.74 ng/dl Lyme Disease IgG Antibody NEG Lyme Disease IgM Antibody NEG Influenza Type A Antigen Neg for Influ A Influenza Type B Antigen Neg for Influ B Urine Color YELLOW Urine Appearance CLEAR Urine pH 7.5 Urine Specific [place] 1.011 Urine Protein NEG Urine Glucose (UA) NEG Urine Ketones 2+ Urine Occult Blood NEG Urine Nitrite NEG Urine Bilirubin NEG Urine Urobilinogen NEG Urine Leukocyte Esterase NEG Urine Test NEG Test 10/01/17 09:11 Impression/recommendations: This is a 37-year-old female who has carried a diagnosis of chronic recurrent pericarditis since a thyroidectomy 2010. According to records she has never had a positive serology and rheumatologic workup has been negative. She has had chronic intermittent chest pain which has been treated with colchicine on a when necessary basis. Thus far her workup after admission has been negative including a normal echocardiogram. ESR is 6. I think it is unlikely that we are dealing with an acute pericarditis. Her symptoms seem to occur with activity. She describes dyspnea and tachycardia along with the chest heaviness when she lays down. I would recommend that we continue the colchicine and anti-inflammatory medications for now. I will order a CT of the chest to rule out pulmonary emboli especially with her family history of cardiolipin antibody. I've also added additional serology test including N/A N/A and rheumatoid factor. I will have additional recommendations after the above, but after the CT, if it is negative we could consider discharging her to outpatient follow-up.
[2017-10-01] MEDS: IBUPROFEN 600 MG TAB PO SCH ×2 (10:52→14:03)
--- NOTE | 2017-10-01 13:14 | DIAGNOSTIC IMAGING REPORT ---
CT ANGIOGRAM OF THE CHEST CLINICAL HISTORY: Dyspnea on exertion. COMPARISON STUDY: Chest x-ray dated 09/30/2017. Chest CT dated 03/09/2008. Abdominal CT dated 12/08/2013. TECHNIQUE: Following the IV administration of 74 cc of Optiray 320, CT angiogram of the chest was performed from the upper abdomen to the thoracic inlet utilizing the pulmonary embolus protocol. Images are reviewed in the axial, sagittal, and coronal planes. 3-D MIPS images are created and assessed. IV contrast was administered without complication. A dose lowering technique was utilized adhering to the principles of ALARA. CT DOSE: 142.20 mGy.cm FINDINGS: Thyroid: Surgically absent. Thoracic aorta: The thoracic aorta is normal in caliber and demonstrates standard 3-vessel arch anatomy. No dissection is seen. Pulmonary vasculature: The pulmonary trunk is normal in caliber. There are no filling defects identified in main, lobar, or segmental pulmonary branches to suggest pulmonary embolus. Heart: The patient is status post midline sternotomy. The heart is normal in size and configuration, and without pericardial effusion. Lungs and pleural spaces: The lungs and pleural spaces are clear. Mediastinum: There is no mediastinal lymphadenopathy. Heather: Clear. Axillae: There is no axillary lymphadenopathy. Upper abdomen: A 1.5 cm hypodensity in the left hepatic lobe seen image #[id number] has been present dating back to 2013 and likely represents a hemangioma. Partially visualized upper abdominal viscera is otherwise within normal limits. Skeletal structures: No lytic or blastic bony lesions are seen. IMPRESSION: 1. There is no evidence of pulmonary embolus in the main, lobar, or segmental pulmonary arteries. 2. The lungs are clear. Electronically signed by: Tristan Govea M.D. 10/01/2017 1:12 PM Dictated Date/Time: 10/01/2017 1:06 PM
[2017-10-01] MEDS ORDERED: METO25TA56 PO (14:01)
[2017-10-01] MEDS ORDERED: CLC6 PO (14:01)
[2017-10-01] MEDS ORDERED: METOPROLOL TARTRATE 25 MG TAB PO ONE (14:05)
--- NOTE | 2017-10-01 14:06 | Discharge Instructions ---
Discharge Instructions Date of Service Oct 01, 2017. Admission Reason for Admission: Dyspnea On Exertion Discharge Discharge Diagnosis / Problem: Dyspnea, sinus tachycardia Discharge Goals Goal(s): Improve function, Diagnostic testing Activity Recommendations Activity Limitations: resume your previous activity . Instructions / Follow-Up Instructions / Follow-Up Medications: - COLCHICINE: increase to twice a day for the next two weeks to treat possible pericarditis - IBUPROFEN: take 600mg three times a day for the next two weeks, take with food - LOPRESSOR: 25mg twice a day, next dose is tomorrow morning, to treat tachycardia Dyspnea and tachycardia: unclear etiology at this time CT angiogram of chest was negative for pulmonary embolism, lungs were clear, no pneumonia Echocardiogram showed normal function, no clear evidence of endocarditis you are not dehydrated TSH is 0.24 which is slightly higher than in the past when you walked around the RN unit your HR went to 130's and you felt short of breath could consider positional tachycardia but this is rare condition, typically happens in younger patients will start you on Lopressor 25mg twice a day check your pulse and blood pressure twice a day, check while sitting and then standing follow up closely with Dr. Garcia FOLLOW UP - call Dr. Garcia's office for appointment in the next week for follow up on heart rate and shortness of breath Current Hospital Diet Patient's current hospital diet: Regular Diet Discharge Diet Recommended Diet: Regular Diet Pending Studies Studies pending at discharge: no Medical Emergencies . Who to Call and When: Medical Emergencies: If at any time you feel your situation is an emergency, please call 911 immediately. . Non-Emergent Contact Non-Emergency issues call your: Primary Care Provider, Car Cleaner Call Non-Emergent contact if: you have any medication questions . . "Provider Documentation" section prepared by Lev Prieto. . [place] Drug Monitoring Program Search Results: no issues identified
[2017-10-02] MEDS ORDERED: LIOTHYRONINE SODIUM 5 MCG TAB PO SCH (07:00)
[2017-10-02 15:34] LABS: ANA SCREEN TC 249X NEGATIVE (NEGATIVE); ANTI-SS-A <1.0 NEG AI (<1.0 NEG); ANTI-SS-B <1.0 NEG AI (<1.0 NEG)
--- NOTE | 2017-10-03 09:41 | Discharge Summary ---
Discharge Summary Date of Service Oct 01, 2017. Discharge Summary Admission Date: Sep 30, 2017 at 15:48 Discharge Date: Oct 01, 2017 Discharge Disposition: Home Principal Diagnosis: Dyspnea at rest and on exertion Problems/Secondary Diagnoses: Sinus tachycardia h/o thyroid cancer h/o pericarditis Immunizations: Have You Had Influenza Vaccine: Unknown History of Tetanus Vaccine?: Unknown History of Pneumococcal: Unknown History of Hepatitis B Vaccine: Unknown Procedures: none Consultations: Cardiology - Dr. Galindo Medication Reconciliation New Medications: Metoprolol Tartrate (Lopressor) (Lopressor) 25 Mg Tab 1 TAB PO BID for 30 Days, #60 TAB 1 Refill Colchicine (Colcrys) 0.6 Mg Tab 0.6 MG PO BID, #60 TAB 1 Refill Continued Medications: Cholecalciferol (Vitamin D) 2,000 Unit Tab 2000 UNITS PO QAM Cyanocobalamin (Vitamin B-12) 1,000 Mcg Tab 1000 MCG PO QAM Drospirenone-Ethinyl Estradiol (Radha) 1 Tab Tab 1 TAB PO QAM Ibuprofen (Ibuprofen) 200 Mg Cap 600 MG PO TID PRN for PRN Levothyroxine Sodium (Levothyroxine Sodium) 137 Mcg Tab 137 MCG PO QAM Liothyronine Sodium (Cytomel) 5 Mcg Tab 5 MCG PO Q2D, TAB Omeprazole (Prilosec) 20 Mg Capcr 40 MG PO QAM, CAP Spironolactone (Aldactone) 25 Mg Tab 25 MG PO QAM, TAB Tramadol Hcl (Ultram) 50 Mg Tab 50-100 MG PO Q4H PRN for PRN, TAB PRN PAIN Discontinued Medications: Colchicine (Colchicine *) 0.6 Mg Tab 0.6 MG PO QAM, 0 Refills Discharge Exam Patient continued to complain of dyspnea, especially on exertion. In the AM she walked just a few feet to the toilet and her HR went up to 120's, RN came rushing in to see if she was okay, just felt short of breath. Evaluated by cardiology, recommended CTA chest to rule out a PE. This was performed and was negative for PE, and lung parenchyma was clear as well. Echo performed, was normal. BLUE, Sjogrens, RF all negative. In the afternoon, had patient ambulate in the hallway. HR went up to 130's, sinus tachycardia, and she felt short of breath. Discussed with her that some females develop a positional tachycardia syndrome, although this is rare and typically happens in younger patient. However, given the fact that there were no other findings to explain her symptoms, recommended that we try starting metoprolol for a week and see if she improved. She could follow up with Dr. Garcia. She agreed with this plan. Review of Systems: Constitutional: No fever, No chills, No sweats, No weight loss, No weakness , No fatigue, No problem reported Eyes: No worsening of vision, No eye pain, No redness, No discharge, No diplopia, No problem reported ENT: No hearing loss, No unusual epistaxis, No nasal symptoms, No sore throat, No tinnitus, No dental problems, No trouble swallowing, No problem reported Respiratory: + shortness of breath, + dyspnea on exertion, + dyspnea at rest , No cough, No sputum, No wheezing, No hemoptysis, No problem reported Cardiovascular: No chest pain, No orthopnea, No PND, No edema, No claudication, No palpitations, No problem reported Abdomen: No pain, No nausea, No vomiting, No diarrhea, No constipation, No GI bleeding, No problem reported Musculoskeletal: No joint pain, No muscle pain, No swelling, No calf pain, No problem reported Genitourinary - Female: No dysuria, No urinary frequency, No urinary urgency , No urinary incontinence, No urinary retention, No hematuria Neurologic: No memory loss, No paralysis, No weakness, No numbness/tingling , No vertigo, No balance problems, No problem reported Psychiatric: No depression symptoms, No anhedonism, No anxiety, No insomnia , No substance abuse, No problem reported Endocrine: No fatigue, No excessive thirst, No excessive urination, No problem reported Hematologic / Lymphatic: No abnormal bleeding/bruising, No clotting problems , No swollen lymph nodes, No night sweats, No problem reported Integumentary: No rash, No itch, No new/changing skin lesions, No color change, No bleeding, No problem reported Physical Exam: General Appearance: WD/WN, no apparent distress Eyes: normal inspection, EOMI, sclerae normal ENT: normal ENT inspection, hearing grossly normal, pharynx normal Neck: supple, no adenopathy, no JVD, trachea midline Respiratory/Chest: chest non-tender, lungs clear, normal breath sounds, no respiratory distress, no accessory muscle use Cardiovascular: no edema, no gallop, no JVD, no murmur, normal peripheral pulses, + tachycardia Abdomen / GI: normal bowel sounds, non tender, soft, no organomegaly Extremities: normal inspection, no calf tenderness, normal capillary refill , no pedal edema, normal range of motion, pelvis stable Neurologic/Psychiatric: 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, no motor/sensory deficits , alert, normal mood/affect, normal reflexes, oriented x 3 Skin: normal color, warm/dry, no rash Lymphatic: no adenopathy Hospital Course 37 yo female with h/o thyroid cancer with thyroidectomy and thymectomy in late , subsequently treated from time to time for pericarditis, presented with dyspnea and severe dyspnea on exertion, found to have tachycardia with standing and walking - Dyspnea, dyspnea on exertion and positional tachycardia CXR clear CTA chest negative for PE, lungs clear, no explanation for symptoms echo normal, no clear signs of pericarditis labs normal BLUE, RF, Sjogren's antibodies normal cardiology recommends treating for flare of pericarditis with Colchicine BID and ibuprofen HR up into the 130's when walking around RN unit, felt weak and short of breath discussed positional tachycardia syndrome, unlikely diagnosis but no other definitive findings to explain symptoms could have a tilt table test in the office will start on metoprolol 25mg BID and follow up with Dr. Garcia H/O thyroid cancer on replacement therapy to supress TSH TSH is 0.2, stable for her compared to prior levels Low back pain secondary to spinal stenosis and degenerative disease, status post spinal fusion and laminectomy: Patient is continue current medical regimen. GERD: will monitor and continue home meds Hypokalemia: resolved with replacement at time to admission Total Time Spent: Greater than 30 minutes This includes examination of the patient, discharge planning, medication reconciliation, and communication with other providers. Discharge Instructions Please refer to the electronic Patient Visit Report (Discharge Instructions) for additional information. Follow-Up Helio Aguilar in 1-[address] Garcia in 1 week Additional Copies To Helio Aguilar III, CRNP; Conner Garcia,
== END 2017-10-01 14:40 | disposition home or self-care (01) ==
LOC: C.EDB 12:01 → C.2E 15:48 → ENRESERV 16:00
PROVIDERS: ADMIT Internal Medicine Sports Medicine; ATTEND Internal Medicine
DX: R06.09 Other forms of dyspnea (principal); E87.6 Hypokalemia; K21.9 Gastro-esophageal reflux disease without esophagitis; M54.5 Low back pain; Z80.2 Family history of malignant neoplasm of other respiratory and intrathoracic organs; Z79.899 Other long term (current) drug therapy; Z85.850 Personal history of malignant neoplasm of thyroid; Z88.5 Allergy status to narcotic agent

== ENCOUNTER → 2017-10-17 | Outpatient (CLI) | payer OTHER ==
[~2017-10-17] MED LIST changes: +CYAN10005 PO; +METO25TA56 PO; -OMEP20TA PO; +PRLSR20 PO
--- NOTE | 2017-10-17 15:35 | EXERCISE STRESS ECHO ---
*NOTICE TO RECEIVING [employer] This information is strictly Confidential and protected under [place] law. [place] law prohibits you from making any further disclosure of this information unless further disclosure is expressly permitted by the written consent of the person to whom it pertains or is authorized by law. A general authorization for the release of medical or other information is not sufficient for this purpose. Hospital accepts no responsibility if the information is made available to any other person, INCLUDING THE PATIENT. Interpretation Summary * Name: EL PHILIP Study Date: 10/17/2017 08:34 AM BP: 108/52 mmHg * Patient Location: [facility]\S\E209\S\1 HR: 72 * : 1980 (M/d/yyyy) Gender: Female Height: 64 in * Age: 37 yrs Ethnicity: [place] Weight: 114 lb * Ordering Physician: Juliet Wilkins * Referring Physician: Juliet Wilkins PA-C * Performed By: Didi Hernandez RCS * * Reason For Study: PALPITATIONS / TACHYCARDIA * BSA: 1.5 m2 * The exercise echocardiographic examination is normal without resting left ventricular wall motion abnormalities or inducible ischemia. * Exercise capacity is average. * -- Conclusions -- * Ejection Fraction = 60-65%. * The left ventricular ejection fraction increases normally with stress. The left ventricular end-systolic cavity size reduces post-stress (normal response). The left ventricular wall motion with stress is normal. * Pulse wave TDI of the anterior and posterior mitral annulas demonstrates normal LV relaxation * Normal IVC diameter with normal respiratory variation. Procedure Details * ECHOEX, CPT #[id number] Left Ventricle * The left ventricle is normal in size. * The left ventricular ejection fraction increases normally with stress. The left ventricular end-systolic cavity size reduces post-stress (normal response). The left ventricular wall motion with stress is normal. * Ejection Fraction = 60-65%. * Resting wall motion: Normal. Stress wall motion: Appropriate increase in Left ventricular systolic function and decrease in cavity size. No stress induced segmental wall motion abnormalities. Right Ventricle * The right ventricle is normal in size and function. Great Vessels * Normal IVC diameter with normal respiratory variation. Stress Parameters * Stress ECG: Interpretation limited by significant baseline artifact related to patient motion. No significant ST changes noted 14 seconds into recovery. No dysrhythmias recorded. * The stress portion of this study was personally supervised by the undersigned interpreting physician. * Rest heart rate was '72' BPM. * Rest blood pressure was '108/52' * Maximum heart rate achieved was 166 bpm. * Maximum heart rate was 90 % of maximum age-predicted heart rate. * Maximum blood pressure was '164/90' * Total exercise time was '09:34' * Maximum exercise MET level achieved was '11.00' METS * Maximum treadmill speed was '4.20' miles per hour. * Maximum treadmill elevation was '16.00'% grade. * Normal blood pressure response to exercise. * Normal heart rate response to exercise. * Exercise was terminated due to 'dyspnea' Left Ventricular Diastolic Function * Pulse wave TDI of the anterior and posterior mitral annulas demonstrates normal LV relaxation
== END | disposition home or self-care (01) ==
LOC: C.CPL 08:22
PROVIDERS: ATTEND Physician Assistant
DX: R00.0 Tachycardia, unspecified (principal); E89.0 Postprocedural hypothyroidism; R55 Syncope and collapse; R00.2 Palpitations; R06.09 Other forms of dyspnea

== ENCOUNTER → 2017-10-21 | Outpatient (CLI) | payer OTHER ==
[2017-10-24 19:53] LABS: MICROSOMAL AB 1 IU/ML (<9); TSI <89 % baseline (<140)
== END | disposition home or self-care (01) ==
LOC: C.LAB 16:55
PROVIDERS: ATTEND Nurse Practitioner Family
DX: E89.0 Postprocedural hypothyroidism (principal); R06.09 Other forms of dyspnea

== ENCOUNTER → 2017-11-08 | Outpatient (CLI) | payer OTHER ==
--- NOTE | 2017-11-08 11:17 | DIAGNOSTIC IMAGING REPORT ---
ABDOMEN COMPLETE (US) CLINICAL HISTORY: Abdominal bruit. COMPARISON STUDY: CT of the abdomen and pelvis December 08, 2013. FINDINGS: Liver is sonographically normal. There are no gallstones. No gallbladder wall thickening is present. There is no biliary ductal dilatation. The appendix is within normal limits by sonography. The size of the spleen is normal. There is no hydronephrosis. The right kidney measures 10 cm in maximal dimension and the left measures 10.2 cm. Several left renal cysts are noted. There is no hydronephrosis. The caliber of the abdominal aorta is normal. Visualized portions of the IVC are patent. There is no ascites. IMPRESSION: 1. Normal caliber abdominal aorta. 2. No gallstones or biliary ductal dilatation. 3. Several left renal cysts. Electronically signed by: Mario Nicholson M.D. 11/08/2017 11:16 AM Dictated Date/Time: 11/08/2017 11:14 AM
== END | disposition home or self-care (01) ==
LOC: C.ULTR 10:21
PROVIDERS: ATTEND Internal Medicine Pulmonary Disease
DX: R09.89 Other specified symptoms and signs involving the circulatory and respiratory systems (principal); N28.1 Cyst of kidney, acquired

== ENCOUNTER 2017-12-06 11:44 | Emergency (ER) | payer OTHER ==
[2017-12-06 11:45] VITALS: Ht 162.6 cm
[2017-12-06] MEDS ORDERED: SODIUM CHLORIDE 0.9% 1000ML 1,000 ML IV STA (12:12)
[2017-12-06 12:29] VITALS: O2SAT 100
[2017-12-06 12:29] LABS: BASO % 0.4 %; BASO ABS # 0.04 K/uL (0-0.2); EOS ABS # 0.31 K/uL (0-0.5); HEMATOCRIT 42.3 % (37-47); HEMOGLOBIN 14.7 g/dL (12.0-16.0); IG# 0.02 K/uL (0.00-0.02); LYMPH % 38.8 %; LYMPH ABS # 4.03 K/uL (1.2-3.4); MEAN CELL VOLUME 87.6 fL (80-100); MEAN CORPUSCULAR HEMOGLOBIN 30.4 pg (25-34); MEAN CORPUSCULAR HGB CONC 34.8 g/dl (32-36); MEAN PLATELET VOLUME 12.6 fL (7.4-10.4); MONO % 6.5 %; MONO ABS # 0.68 K/uL (0.11-0.59); NEUT % 51.1 %; NEUT ABS # 5.31 K/uL (1.4-6.5); PLATELET COUNT 254 K/uL (130-400); RED CELL DISTRIBUTION WIDTH SD 42.1 fL (36.4-46.3); WHITE BLOOD COUNT 10.39 K/uL (4.8-10.8)
[2017-12-06 12:41] LABS: ALBUMIN 4.3 gm/dl (3.4-5.0); ALT/SGPT 21 U/L (12-78); AST/SGOT 19 U/L (15-37); BLOOD UREA NITROGEN 17 mg/dl (7-18); CALCIUM 9.2 mg/dl (8.5-10.1); CARBON DIOXIDE 17 mmol/L (21-32); CREATININE 1.11 mg/dl (0.60-1.20); GLUCOSE 123 mg/dl (70-99); INR 0.9 (0.9-1.1); POTASSIUM 2.8 mmol/L (3.5-5.1); PTT PATIENT 23.6 SECONDS (21.0-31.0); SODIUM 138 mmol/L (136-145)
--- NOTE | 2017-12-06 12:49 | EMERGENCY ROOM VISIT NOTE ---
History First contact with patient: 12:06 Chief Complaint: SYNCOPE (NEAR SYNCOPE) Stated Complaint: LIGHTHEADED, PASSING OUT History of Present Illness The patient is a 37 year old female who presents to the Emergency Room with complaints of dyspnea, diaphoresis, numbness and tingling of the extremities, and a presyncopal episode. 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 While sitting and working she began experiencing warmth and sweating. She states she laid down immediately and felt better. Sitting up made her symptoms significantly worse. Her blood sugar was checked on the forearm was 74. Her blood pressure have remained normal. She reports bilateral leg weakness and paresthesias in all 4 extremities with "decreased sensation." She denies any palpitations or chest pain. She denies any recent illness. She denies any headache, nausea, vomiting, constipation, diarrhea, fever, or leg swelling. She has not traveled recently. Patient denies any history of blood clots. She is currently on oral control pills. She denies any drug or alcohol use. She is not a smoker. The patient denies any pain and rates it 0/ 10. She denies an actual episode of syncope, but states she felt very close. She did eat and drink normally this morning. She denies history of similar episodes in the past. She denies recent injury or fall. She denies history of abnormal heart rhythms. Review of Systems A complete 10 point review of systems was reviewed with the patient with pertinent positives and negatives as per history of present illness. All else were negative. Past Medical/Surgical History Medical Problems: (1) Abdominal pain (2) Dehydration (3) Dehydration, moderate (4) Diverticulitis (5) Diverticulitis (6) Dyspnea on exertion (7) Lumbar radiculopathy (8) Thyroid cancer Family History FH: lung disease FHx: cancer Social History Smoking Status: Never Smoker Alcohol Use: occasionally Drug Use: none Marital Status: single Occupation Status: employed Current/Historical Medications Scheduled Cholecalciferol (Vitamin D), 2,000 UNITS PO QAM Colchicine (Colcrys), 0.6 MG PO BID Cyanocobalamin (Vitamin B-12), 1,000 MCG PO QAM Drospirenone-Ethinyl Estradiol (Radha), 1 TAB PO QAM Levothyroxine Sodium (Tirosint), 1 TAB PO DAILY Liothyronine Sodium (Cytomel), 5 MCG PO Q2D Metoprolol Tartrate (Lopressor) (Lopressor), 1 TAB PO BID Omeprazole (Prilosec), 40 MG PO QAM Spironolactone (Aldactone), 25 MG PO QAM Scheduled PRN Ibuprofen (Ibuprofen), 600 MG PO TID PRN for PRN Physical Exam Vital Signs Date Time Temp Pulse Resp B/P (MAP) Pulse Ox O2 Delivery O2 Flow Rate FiO2 12/06/17 17:43 61 24 114/63 98 12/06/17 17:04 70 12/06/17 14:15 118/69 12/06/17 14:14 70 29 98 12/06/17 14:01 136/70 12/06/17 13:59 76 17 100 12/06/17 13:46 104/72 12/06/17 13:40 152/90 12/06/17 13:38 139/79 12/06/17 13:36 119/83 12/06/17 13:35 70 20 119/83 74 139/79 80 156/80 12/06/17 13:29 63 36 100 12/06/17 12:31 113/68 12/06/17 12:29 100 Room Air 12/06/17 12:29 70 20 100 12/06/17 12:25 72 12/06/17 12:16 122/85 12/06/17 11:45 78 18 133/75 100 Room Air Physical Exam VITALS: Vitals are noted on the nurse's note and reviewed by myself. Vital signs stable. GENERAL: This is a 37-year-old white female, in no acute distress, nondiaphoretic, well-developed well-nourished. SKIN: The skin was without rashes, erythema, edema, or bruising. There is no tenting of the skin. Capillary reflex less than 2 seconds. HEAD: Normocephalic atraumatic. EARS: External auditory canals clear, tympanic membranes pearly walker without erythema or effusion bilaterally. EYES: Pupils equal round and reactive to light and accommodation. Conjunctivae without injection, sclerae without icterus. Extraocular movements intact. NOSE: Patent, turbinates without inflammation or discharge. No sinus tenderness. MOUTH: Mucous membranes moist. Tonsils are not enlarged. Pharynx without erythema or exudate. Uvula midline. Airway patent. Tongue does not deviate. NECK: Supple without nuchal rigidity. No lymphadenopathy. No thyromegaly. Cervical spine is nontender. No JVD. HEART: Regular rate and rhythm without murmurs gallops or rubs. LUNGS: Clear to auscultation bilaterally without wheezes, rales or rhonchi. No dullness to percussion. No retractions or accessory muscle use. ABDOMEN: Positive bowel sounds x 4. Normal tympanic percussion. Soft, nontender, without masses or organomegaly. Saldivar sign negative. No guarding or rebound tenderness. MUSCULOSKELETAL: No muscle atrophy, erythema, or edema noted. Full range of motion without joint tenderness in all extremities. No tenderness to palpation specifically the extremities, neck, or back. Strength 5/5 throughout. NEURO: Patient was alert and oriented to person place and time. Normal sensation to light and sharp touch. Deep tendon reflexes 2+ throughout. No focal neurological deficits. Medical Decision & Procedures ER Provider Diagnostic Interpretation: CHEST 2 VIEWS ROUTINE CLINICAL HISTORY: 37 years-old Female presenting with dyspnea, syncope. TECHNIQUE: PA and lateral views of the chest were obtained. COMPARISON: 09/30/2017. FINDINGS: Sternotomy wires and surgical clips at the base of the neck noted. Cardiomediastinal silhouette normal. Lungs and pleural spaces clear. Osseous structures normal. Upper abdomen normal. IMPRESSION: 1. No acute cardiopulmonary disease. Electronically signed by: Michael Henderson M.D. 12/06/2017 12:53 PM Dictated Date/Time: 12/06/2017 12:52 PM Laboratory Results 12/06/17 12:05 Red Blood Count 4.83, Mean Corpuscular Volume 87.6, Mean Corpuscular Hemoglobin 30.4, Mean Corpuscular Hemoglobin Concent 34.8, Mean Platelet Volume 12.6, Neutrophils (%) (Auto) 51.1, Lymphocytes (%) (Auto) 38.8, Monocytes (%) (Auto) 6.5, Eosinophils (%) (Auto) 3.0, Basophils (%) (Auto) 0.4, Neutrophils # (Auto) 5.31, Lymphocytes # (Auto) 4.03, Monocytes # (Auto) 0.68, Eosinophils # (Auto) 0.31, Basophils # (Auto) 0.04 12/06/17 16:25 Test 12/06/17 12:05 12/06/17 12:12 12/06/17 13:25 12/06/17 16:25 White Blood Count 10.39 K/uL (4.8-10.8) Red Blood Count 4.83 M/uL (4.2-5.4) Hemoglobin 14.7 g/dL (12.0-16.0) Hematocrit 42.3 % (37-47) Mean Corpuscular Volume 87.6 fL (80-100) Mean Corpuscular Hemoglobin 30.4 pg (25-34) Mean Corpuscular Hemoglobin Concent 34.8 g/dl (32-36) Platelet Count 254 K/uL (130-400) Mean Platelet Volume 12.6 fL (7.4-10.4) Neutrophils (%) (Auto) 51.1 % Lymphocytes (%) (Auto) 38.8 % Monocytes (%) (Auto) 6.5 % Eosinophils (%) (Auto) 3.0 % Basophils (%) (Auto) 0.4 % Neutrophils # (Auto) 5.31 K/uL (1.4-6.5) Lymphocytes # (Auto) 4.03 K/uL (1.2-3.4) Monocytes # (Auto) 0.68 K/uL (0.11-0.59) Eosinophils # (Auto) 0.31 K/uL (0-0.5) Basophils # (Auto) 0.04 K/uL (0-0.2) RDW Standard Deviation 42.1 fL (36.4-46.3) RDW Coefficient of Variation 13.0 % (11.5-14.5) Immature Granulocyte % (Auto) 0.2 % Immature Granulocyte # (Auto) 0.02 K/uL (0.00-0.02) Prothrombin Time 9.4 SECONDS (9.0-12.0) Prothromb Time International Ratio 0.9 (0.9-1.1) Activated Partial Thromboplast Time 23.6 SECONDS (21.0-31.0) Partial Thromboplastin Ratio 0.9 D-Dimer 230 ug/L FEU (0-500) Magnesium Level 2.2 mg/dl (1.8-2.4) Total Bilirubin 0.3 mg/dl (0.2-1) Aspartate Amino Transf (AST/SGOT) 19 U/L (15-37) Alanine Aminotransferase (ALT/SGPT) 21 U/L (12-78) Alkaline Phosphatase 52 U/L (45-117) Creatine Kinase MB 1.0 ng/ml (0.5-3.6) Troponin I < 0.015 ng/ml (0-0.045) Total Protein 8.1 gm/dl (6.4-8.2) Albumin 4.3 gm/dl (3.4-5.0) Globulin 3.8 gm/dl (2.5-4.0) Albumin/Globulin Ratio 1.1 (0.9-2) Thyroid Stimulating Hormone (TSH) 0.101 uIu/ml (0.300-4.500) Free Thyroxine 1.75 ng/dl (0.80-1.60) Human Chorionic Gonadotropin, Qual NEG (NEG) Lyme Disease IgG Antibody NEG (NEG) Lyme Disease IgM Antibody NEG (NEG) Creatine Kinase MB Ratio (0-3.0) Urine Color YELLOW Urine Appearance CLEAR (CLEAR) Urine pH 7.0 (4.5-7.5) Urine Specific [place] 1.013 (1.000-1.030) Urine Protein NEG (NEG) Urine Glucose (UA) NEG (NEG) Urine Ketones TRACE (NEG) Urine Occult Blood NEG (NEG) Urine Nitrite NEG (NEG) Urine Bilirubin NEG (NEG) Urine Urobilinogen NEG (NEG) Urine Leukocyte Esterase NEG (NEG) Urine Opiates Screen NEG (NEG) Urine Methadone, Qualitative NEG (NEG) Urine Barbiturates NEG (NEG) Urine Phencyclidine (PCP) Level NEG (NEG) Ur Amphetamine/Methamphetamine NEG (NEG) MDMA (Ecstasy) Screen NEG (NEG) Urine Benzodiazepines Screen NEG (NEG) Urine Cocaine Metabolite NEG (NEG) Urine Marijuana (THC) NEG (NEG) Anion Gap 2.0 mmol/L (3-11) Estimated GFR () 129.8 Estimated GFR (Non- 112.0 BUN/Creatinine Ratio 16.5 (10-20) Calcium Level 7.2 mg/dl (8.5-10.1) Medications Administered Medications (Trade) Dose Ordered Sig/Tony Route Start Time Stop Time Status Last Admin Dose Admin Sodium Chloride 1,000 ml @ 999 mls/hr Q1H1M STAT IV 12/06/17 12:12 12/06/17 13:12 DC 12/06/17 12:25 999 MLS/HR Potassium Chloride (Klor-Con M10) 20 meq NOW STAT PO 12/06/17 13:24 12/06/17 13:37 DC 12/06/17 13:35 20 MEQ Potassium Chloride (KCL 10 mEq / WTR) 10 meq NOW STAT IV 12/06/17 13:24 12/06/17 13:37 DC 12/06/17 13:35 10 MEQ Potassium Chloride (Klor-Con M10) 40 meq NOW STAT PO 12/06/17 13:36 12/06/17 13:37 DC 12/06/17 13:47 40 MEQ Potassium Chloride (KCL 10 mEq / WTR) 20 meq NOW STAT IV 12/06/17 13:36 12/06/17 13:37 DC 12/06/17 14:00 20 MEQ ECG Per My Interpretation Indication: weakness, syncope Rate (beats per minute): 79 Rhythm: normal sinus Findings: T-wave inversion (V2 T wave inversion remains consistent with previous EKG), other (borderline prolonged QT interval @ 420ms. Previous EKG was 320ms.) Comparison ECG Date: QT prolonged, no longer tachycardic when compared to EKG 09/2017. ED Course The patient was seen and evaluated as above. IV access obtained, labs drawn. The patient was given 1 L normal saline solution bolus. EKG performed and interpreted by myself as above. Chest x-ray performed and reviewed by myself and radiologist as above I reviewed all lab work. The patient is hypokalemic with a low TSH. I discussed the case with the ED pharmacist and Dr. Julio. They did recommend replenishing the potassium with 20 mEq IV potassium and 40 mEq PO potassium. I did consult with Dr. Frost, [facility] Hospitalist regarding observation/admission. Please see his dictation regarding further management and care. Medical Decision This is a 37-year-old female patient presents to the emergency department today complaining of a presyncopal episode. She has had similar episodes in the past , and has been worked up by cardiology and neurology. On examination, the patient is normotensive with normal heart rate. Her EKG does show a slightly prolonged QT interval when compared to her previous EKG. Labs did not reveal any leukocytosis, anemia, thrombocytopenia. The patient's initial potassium was 2.8. Random glucose elevated at 123. TSH was low at 0.101. Free T4 was elevated at 1.75. HCG was negative. Urine drug screen was negative. Urinalysis was without signs of infection. Coagulation factors without abnormalities. Lyme disease negative. The patient was given IV and oral potassium due to her symptomatic hypokalemia. I suspect the hypokalemia is causing the patient's symptoms, and I suspect her thyroid may be contributing as well. The patient continued to feel very weak with paresthesias in all of her extremities. I do feel that the patient would benefit observation to ensure her potassium normalizes and symptoms improve. I did consult with the hospitalist regarding possible observation to ensure her potassium is properly replenished. Please see his dictation for further management and care. Etiologies such as vasovagal event, infection, hypoglycemia, electrolyte abnormalities, cardiac sources, intracerebral event, toxicologic, neurologic, as well as others were entertained. The chart was completed utilizing [employer] Speech voice recognition software. Grammatical errors, random word insertions, pronoun errors, and incomplete sentences are an occasional consequence of this system due to software limitations, ambient noise, and hardware issues. Any formal questions or concerns about the content, text, or information contained within the body of this dictation should be directly addressed to the provider for clarification. Medication Reconcilliation Current Medication List: was personally reviewed by me Blood Pressure Screening Patient's blood pressure: Normal blood pressure Impression Primary Impression: Hypokalemia Additional Impression: Pre-syncope Departure Information Dispostion Being Evaluated By Hospitalist Condition GOOD Referrals Helio Aguilar III, CRNP (PCP) Patient Instructions [facility] Problem Qualifiers
[2017-12-06 12:52] LABS: ALKALINE PHOSPHATASE 52 U/L (45-117); TOTAL PROTEIN 8.1 gm/dl (6.4-8.2)
--- NOTE | 2017-12-06 12:55 | DIAGNOSTIC IMAGING REPORT ---
CHEST 2 VIEWS ROUTINE CLINICAL HISTORY: 37 years-old Female presenting with dyspnea, syncope. TECHNIQUE: PA and lateral views of the chest were obtained. COMPARISON: 09/30/2017. FINDINGS: Sternotomy wires and surgical clips at the base of the neck noted. Cardiomediastinal silhouette normal. Lungs and pleural spaces clear. Osseous structures normal. Upper abdomen normal. IMPRESSION: 1. No acute cardiopulmonary disease. Electronically signed by: Micheal Henderson M.D. 12/06/2017 12:53 PM Dictated Date/Time: 12/06/2017 12:52 PM
[2017-12-06] MEDS ORDERED: LEVO137C2 PO (13:22)
[2017-12-06] MEDS ORDERED: POTASSIUM CHLORIDE 10 MEQ / 100ML WTR IV STA ×2 (13:24→13:36)
[2017-12-06] MEDS ORDERED: POTASSIUM CHLORIDE 10 MEQ TABCR PO STA ×2 (13:24→13:36)
[2017-12-06] MEDS ORDERED: LIOTHYRONINE SODIUM 5 MCG TAB PO SCH (13:45)
[2017-12-06] MEDS ORDERED: IBUPROFEN 600 MG TAB PO PRN (13:45)
--- NOTE | 2017-12-06 15:18 | History and Physical ---
History & Physical Date & Time of Service: December 06, 2017 at 14:06 Chief Complaint: Lightheaded, Passing Out Primary Care Physician: Helio Aguilar III, CRNP History of Present Illness Source: patient, hospital records, other 37 y/o F Hx recurrent pericarditis, resting tachycardia, recurrent hypokalemia, thyroid CA. 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 She describes being lightheaded and denies LOC. She states she had numbness and tingling in her extremities. She attempted to stand multiple times but was not able to do so without becoming lightheaded and diaphoretic. The pt states that she is currently being worked up for an unspecified neurologic disorder - possibly Myasthenia Gravis. This is due to bouts of acute muscle weakness mostly involving her lower extremities at the end of the day. She additionally describes recent abnormal PFTs with a degree of restrictive disease and reduced diffusion capacity. 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 Smoking Status: Never Smoker Drug Use: none Marital Status: single Housing status: lives with family Occupational Status: employed Immunizations History of Influenza Vaccine: Unknown History of Tetanus Vaccine?: Unknown History of Pneumococcal: Unknown History of Hepatitis B Vaccine: Unknown Allergies Coded Allergies: Morphine (Verified Adverse Reaction, Intermediate, RED VEINS, 09/30/17) Home Medications Scheduled Cholecalciferol (Vitamin D), 2,000 UNITS PO QAM Colchicine (Colcrys), 0.6 MG PO BID Cyanocobalamin (Vitamin B-12), 1,000 MCG PO QAM Drospirenone-Ethinyl Estradiol (Radha), 1 TAB PO QAM Levothyroxine Sodium (Tirosint), 1 TAB PO DAILY Liothyronine Sodium (Cytomel), 5 MCG PO Q2D Metoprolol Tartrate (Lopressor) (Lopressor), 1 TAB PO BID Omeprazole (Prilosec), 40 MG PO QAM Spironolactone (Aldactone), 25 MG PO QAM Scheduled PRN Ibuprofen (Ibuprofen), 600 MG PO TID PRN for PRN Review of Systems Constitutional: + sweats, No fever, No chills Eyes: No worsening of vision ENT: No hearing loss, No unusual epistaxis, No nasal symptoms Respiratory: No cough, No wheezing Cardiovascular: No chest pain, No orthopnea, No PND Abdomen: No pain, No vomiting Musculoskeletal: No joint pain Genitourinary - Female: No dysuria, No urinary frequency, No urinary urgency Neurologic: + weakness, + numbness/tingling, + problem reported (lightheaded) Psychiatric: No depression symptoms Endocrine: No fatigue Hematologic / Lymphatic: No abnormal bleeding/bruising Integumentary: No rash Allergic / Immunologic: No environmental allergies Physical Exam Vital Signs Date Time Temp Pulse Resp B/P (MAP) Pulse Ox O2 Delivery O2 Flow Rate FiO2 12/06/17 12:29 100 Room Air 12/06/17 12:25 72 12/06/17 11:45 78 18 133/75 100 Room Air General Appearance: WD/WN, no apparent distress Head: normocephalic Eyes: normal inspection ENT: normal ENT inspection, pharynx normal Neck: supple, no JVD Respiratory/Chest: chest non-tender, lungs clear, normal breath sounds Cardiovascular: regular rate, rhythm, no edema, no gallop Abdomen/GI: normal bowel sounds, non tender Extremities/Musculoskelatal: normal inspection, no calf tenderness, normal capillary refill Neurologic/Psych: engineer II-XII nml as tested, no motor/sensory deficits, alert, oriented x 3 Skin: normal color Diagnostics Laboratory Results Results Past 24 Hours Test 12/06/17 12:05 12/06/17 12:12 12/06/17 13:25 Range/Units White Blood Count 10.39 4.8-10.8 K/uL Red Blood Count 4.83 4.2-5.4 M/uL Hemoglobin 14.7 12.0-16.0 g/dL Hematocrit 42.3 37-47 % Mean Corpuscular Volume 87.6 80-100 fL Mean Corpuscular Hemoglobin 30.4 25-34 pg Mean Corpuscular Hemoglobin Concent 34.8 32-36 g/dl Platelet Count 254 130-400 K/uL Mean Platelet Volume 12.6 7.4-10.4 fL Neutrophils (%) (Auto) 51.1 % Lymphocytes (%) (Auto) 38.8 % Monocytes (%) (Auto) 6.5 % Eosinophils (%) (Auto) 3.0 % Basophils (%) (Auto) 0.4 % Neutrophils # (Auto) 5.31 1.4-6.5 K/uL Lymphocytes # (Auto) 4.03 1.2-3.4 K/uL Monocytes # (Auto) 0.68 0.11-0.59 K/uL Eosinophils # (Auto) 0.31 0-0.5 K/uL Basophils # (Auto) 0.04 0-0.2 K/uL RDW Standard Deviation 42.1 36.4-46.3 fL RDW Coefficient of Variation 13.0 11.5-14.5 % Immature Granulocyte % (Auto) 0.2 % Immature Granulocyte # (Auto) 0.02 0.00-0.02 K/uL Prothrombin Time 9.4 9.0-12.0 SECONDS Prothromb Time International Ratio 0.9 0.9-1.1 Activated Partial Thromboplast Time 23.6 21.0-31.0 SECONDS Partial Thromboplastin Ratio 0.9 D-Dimer 230 0-500 ug/L FEU Sodium Level 138 136-145 mmol/L Potassium Level 2.8 3.5-5.1 mmol/L Chloride Level 106 98-107 mmol/L Carbon Dioxide Level 17 21-32 mmol/L Anion Gap 15.0 3-11 mmol/L Blood Urea Nitrogen 17 7-18 mg/dl Creatinine 1.11 0.60-1.20 mg/dl Estimated GFR () 74.0 Estimated GFR (Non- 63.8 BUN/Creatinine Ratio 15.2 10-20 Random Glucose 123 70-99 mg/dl Calcium Level 9.2 8.5-10.1 mg/dl Magnesium Level 2.2 1.8-2.4 mg/dl Total Bilirubin 0.3 0.2-1 mg/dl Aspartate Amino Transf (AST/SGOT) 19 15-37 U/L Alanine Aminotransferase (ALT/SGPT) 21 12-78 U/L Alkaline Phosphatase 52 45-117 U/L Creatine Kinase MB 1.0 0.5-3.6 ng/ml Troponin I < 0.015 0-0.045 ng/ml Total Protein 8.1 6.4-8.2 gm/dl Albumin 4.3 3.4-5.0 gm/dl Globulin 3.8 2.5-4.0 gm/dl Albumin/Globulin Ratio 1.1 0.9-2 Thyroid Stimulating Hormone (TSH) 0.101 0.300-4.500 uIu/ml Free Thyroxine 1.75 0.80-1.60 ng/dl Human Chorionic Gonadotropin, Qual NEG NEG Creatine Kinase MB Ratio 0-3.0 Urine Color YELLOW Urine Appearance CLEAR CLEAR Urine pH 7.0 4.5-7.5 Urine Specific [place] 1.013 1.000-1.030 Urine Protein NEG NEG Urine Glucose (UA) NEG NEG Urine Ketones TRACE NEG Urine Occult Blood NEG NEG Urine Nitrite NEG NEG Urine Bilirubin NEG NEG Urine Urobilinogen NEG NEG Urine Leukocyte Esterase NEG NEG EKG Sinus - borderline QT prolongation - inversions in V2,V3 - previous EKG with inversions in V2 only - otherwise no significant change Impression Assessment and Plan 37 y/o F Hx recurrent pericarditis, resting tachycardia, recurrent hypokalemia, thyroid CA. 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 She describes being lightheaded and denies LOC. She states she had numbness and tingling in her extremities. She attempted to stand multiple times but was not able to do so without becoming lightheaded and diaphoretic. The pt states that she is currently being worked up for an unspecified neurologic disorder - possibly Myasthenia Gravis. This is due to bouts of acute muscle weakness mostly involving her lower extremities at the end of the day. She additionally describes recent abnormal PFTs with a degree of restrictive disease and reduced diffusion capacity. 1) Near syncope - acute weakness, numbness/tingling and diaphoresis - etiology is not clear - she is receiving IVF and K replacement. We will reassess following 2 liters. 2) Hypokalemia - may be related to thyroid oversuppression - she takes Aldactone and has had recurrences regardless - may need additional supplementation on DC. Plausibly, this could cause her acute weakness but does not necessarily explain lightheadedness and diaphoresis. Minor EKG changes are present - we will recheck her EKG when K is corrected. 3) Hypothyroid - as mentioned, TSH is slightly low - she may need a med adjustment - we would hold off on Thyroxine for a few days and follow-up with her MD as an outpt. 4) Tachycardia at rest - controlled with Metoprolol 5) Recurrent pericarditis - we do not currently suspect a cardio etiology for her acute issues despite minor EKG changes - if she does not improve with fluids and her EKG does not normalize with correction of K, we will consider additional workup in this area - she had a normal echo and stress echo completed 09/2017 Addendum - pt able to ambulate without difficulty following 2 L IVF - EKG has normalized afetr K replacement - we are pending a repeat BMP - if K is near- normal we will consider DC We discussed the case with her neuro service Please consider the above a consult Total time for this consult including review of labs, meds, imaging, records - discussion with pt and ER attending, additional workup, IVF and electrolyte replacement - 38 min Resuscitation Status VTE Prophylaxis Will order VTE Prophylaxis: No Reason for no VTE drug order: Treatment not indicated Reason no Mechanical VTE Order: Treatment not indicated
[2017-12-06 17:19] LABS: CREATININE 0.69 mg/dl (0.60-1.20); GLUCOSE 84 mg/dl (70-99)
[2017-12-06 17:20] LABS: BLOOD UREA NITROGEN 11 mg/dl (7-18); CALCIUM 7.2 mg/dl (8.5-10.1); CARBON DIOXIDE 23 mmol/L (21-32); POTASSIUM 4.7 mmol/L (3.5-5.1); SODIUM 143 mmol/L (136-145)
[2017-12-06 17:43] VITALS: BP 114/63; PULSE 61; O2SAT 98
[2017-12-06] MEDS ORDERED: METOPROLOL TARTRATE 25 MG TAB PO SCH (21:00)
[2017-12-06] MEDS ORDERED: COLCHICINE 0.6 MG TAB PO SCH (21:00)
[2017-12-07] MEDS ORDERED: LEVOTHYROXINE 137 MCG TAB PO SCH (07:00)
[2017-12-07] MEDS ORDERED: SPIRONOLACTONE 25 MG TAB PO SCH (09:00)
[2017-12-07] MEDS ORDERED: PANTOprazole SOD 40 MG TAB PO SCH (09:00)
== END 2017-12-06 17:44 | disposition home or self-care (01) ==
LOC: C.EDB 11:45
DX: R55 Syncope and collapse (principal); E87.6 Hypokalemia; R53.1 Weakness; R20.0 Anesthesia of skin; E03.9 Hypothyroidism, unspecified; I31.9 Disease of pericardium, unspecified; Z79.3 Long term (current) use of hormonal contraceptives; Z85.850 Personal history of malignant neoplasm of thyroid

== ENCOUNTER → 2017-12-13 | Outpatient (CLI) | payer OTHER ==
[~2017-12-13] MED LIST changes: +LEVO137C2 PO; -LEVO137T3 PO; -TRAM-453 PO
--- NOTE | 2017-12-13 07:43 | DIAGNOSTIC IMAGING REPORT ---
ABDOMEN LIMITED (US) HISTORY: 37 years-old Female FATIGUE, SPLEEN PALPABLE acute fatigue COMPARISON: Abdominal ultrasound 11/08/2017 TECHNIQUE: Multiple real-time sonographic images of the left dominant upper quadrant were obtained assessing grayscale appearance and color flow FINDINGS: The spleen appears normal in size and homogeneous in echogenicity without focal mass measuring 8.1 cm in length. This is unchanged from comparison study dated 11/08/2017. No left upper quadrant ascites. IMPRESSION: Normal size and appearance of the spleen. The above report was generated using voice recognition software. It may contain grammatical, syntax or spelling errors. Electronically signed by: Peng Rodrigues M.D. 12/13/2017 7:42 AM Dictated Date/Time: 12/13/2017 7:41 AM
== END | disposition home or self-care (01) ==
LOC: C.ULTR 07:04
PROVIDERS: ATTEND Neuromusculoskeletal Medicine & OMM
DX: R53.83 Other fatigue (principal); R16.1 Splenomegaly, not elsewhere classified

== ENCOUNTER → 2018-03-18 | Outpatient (CLI) | payer OTHER ==
[~2018-03-18] MED LIST changes: +ADAP0.05 TOP; -CYAN10005 PO; -IBUP1CAP9 PO; +IBUP200C80 PO; -LEVO137C2 PO; +LEVO150T9 PO; +NAPR-22 PO; +ONDA-170 PO; +TRAM-10 PO; +VALA500T60 PO
== END | disposition home or self-care (01) ==
LOC: C.LAB 18:03
PROVIDERS: ATTEND Internal Medicine Endocrinology, Diabetes & Metabolism
DX: E89.0 Postprocedural hypothyroidism (principal)